=== PATIENT | female | born 1975 | race Caucasian/White ===

== ENCOUNTER → 2018-02-20 10:45 | Outpatient (CLI) | payer BC, SELFPAY ==
--- NOTE | 2018-02-20 10:49 | MR_ITS ---
MR lumbar spine wo con, MR 3-d myelogram/MRCP HISTORY: LBP with LT leg pain, numbness, tingling, and swelling. HX 2 back surgeries. Last one X 4 Years ago. Weakness in LT leg. Symptoms X 2months. No trauma ITS.REASON: SCIATICA ASSOCIATED WITH DISORDER ORDERING PHYSICIAN: Felicita Pratt PATIENT AGE: 43 years Comparison: MRI 06-05-12 TECHNIQUE: Standard multiplanar multiecho sequences are performed without contrast. 3-D MIP and myelographic images are also rendered and reviewed FINDINGS: There is normal alignment. The spinal cord ends at the L1 level. T12-L1, L1-L2, and L2-L3 show some mild endplate irregularity. No disc herniation or canal stenosis. There is some minimal facet hypertrophic changes as well as these levels. L3-L4: Unremarkable. L4-L5: There is a small concentric bulging disc with a posterior annular fissure and minimal left paracentral disc protrusion along with mild facet hypertrophic change slightly greater on the left. The minimal disc protrusion and left-sided facet hypertrophy does abut upon the left L5 nerve root. There is fkpr-sp-bttrabbm left-sided foraminal narrowing at this level as well. L5-S1: Degenerative disc disease. Prior left laminectomy. There is bulging disc with small endplate osteophytes and facet hypertrophic change. Minimal left paracentral disc protrusion noted versus a small area of epidural fibrosis. This does abut the anterior aspect of the left S1 nerve root. Post enhanced exam may aid to distinguish between the 2 entities if clinically warranted. Probably not significant changed from 06/05/2012. IMPRESSION: 1. Mild degenerative changes with endplate irregularity and mild facet hypertrophy T12-L3 2. There is a small concentric bulging disc at L4-L5 with a posterior annular fissure and minimal left paracentral disc protrusion along with mild facet hypertrophic change slightly greater on the left. The minimal disc protrusion and left-sided facet hypertrophy does abut upon the left L5 nerve root. There is sldt-gw-cgoycwuq left-sided foraminal narrowing at this level as well. 3. Degenerative disc disease L5-S1 status post prior left laminectomy with bulging disc with small endplate osteophytes and facet hypertrophic change. Minimal left paracentral disc protrusion noted versus a small area of epidural fibrosis. This does abut the anterior aspect of the left S1 nerve root. Post enhanced exam may aid to distinguish between the 2 entities if clinically warranted. Probably not significant changed from 06/05/2012.
--- NOTE | 2018-02-20 10:49 | MR_ITS ---
MR lumbar spine wo con, MR 3-d myelogram/MRCP HISTORY: LBP with LT leg pain, numbness, tingling, and swelling. HX 2 back surgeries. Last one X 4 Years ago. Weakness in LT leg. Symptoms X 2months. No trauma ITS.REASON: SCIATICA ASSOCIATED WITH DISORDER ORDERING PHYSICIAN: Felicita Pratt PATIENT AGE: 43 years Comparison: MRI 06-05-12 TECHNIQUE: Standard multiplanar multiecho sequences are performed without contrast. 3-D MIP and myelographic images are also rendered and reviewed FINDINGS: There is normal alignment. The spinal cord ends at the L1 level. T12-L1, L1-L2, and L2-L3 show some mild endplate irregularity. No disc herniation or canal stenosis. There is some minimal facet hypertrophic changes as well as these levels. L3-L4: Unremarkable. L4-L5: There is a small concentric bulging disc with a posterior annular fissure and minimal left paracentral disc protrusion along with mild facet hypertrophic change slightly greater on the left. The minimal disc protrusion and left-sided facet hypertrophy does abut upon the left L5 nerve root. There is dcsd-xr-lkangcbu left-sided foraminal narrowing at this level as well. L5-S1: Degenerative disc disease. Prior left laminectomy. There is bulging disc with small endplate osteophytes and facet hypertrophic change. Minimal left paracentral disc protrusion noted versus a small area of epidural fibrosis. This does abut the anterior aspect of the left S1 nerve root. Post enhanced exam may aid to distinguish between the 2 entities if clinically warranted. Probably not significant changed from 06/05/2012. IMPRESSION: 1. Mild degenerative changes with endplate irregularity and mild facet hypertrophy T12-L3 2. There is a small concentric bulging disc at L4-L5 with a posterior annular fissure and minimal left paracentral disc protrusion along with mild facet hypertrophic change slightly greater on the left. The minimal disc protrusion and left-sided facet hypertrophy does abut upon the left L5 nerve root. There is wrqo-se-pbosfllg left-sided foraminal narrowing at this level as well. 3. Degenerative disc disease L5-S1 status post prior left laminectomy with bulging disc with small endplate osteophytes and facet hypertrophic change. Minimal left paracentral disc protrusion noted versus a small area of epidural fibrosis. This does abut the anterior aspect of the left S1 nerve root. Post enhanced exam may aid to distinguish between the 2 entities if clinically warranted. Probably not significant changed from 06/05/2012.
== END ==
PROVIDERS: PCP Nurse Practitioner; Visit Provider Nurse Practitioner
DX: M54.30 Sciatica, unspecified side (principal)
CPT/HCPCS: 72148; 76376

== ENCOUNTER → 2018-07-22 16:14 | Outpatient (CLI) | payer BC, SELFPAY ==
[2018-07-22 16:48] LABS: Basophils % 0.2 % (0.1-2.0); Eosinophils # 0.2 K/mm3 (0.0-0.4); Eosinophils % 1.7 % (0.1-12.0); Hematocrit 44.2 % (37.0-47.0); Hemoglobin 14.9 g/dL (12.2-16.2); Lymphocytes # 1.5 K/mm3 (0.7-4.5); Lymphocytes % 16.6 % (10-50); Mean Corpuscular HGB Conc 33.6 g/dL (31.8-35.4); Mean Corpuscular Hemoglobin 30.7 pg (27.0-31.2); Mean Corpuscular Volume 91.2 fl (81-99); Monocytes # 0.4 K/mm3 (0.1-1.0); Monocytes % 4.5 % (1.7-9.3); Neutrophils # 7.1 K/mm3 (1.8-7.8); Platelet Count 262 K/mm3 (142-424); Red Blood Count 4.85 M/mm3 (4.20-5.40); Red Cell Distribution Width 13.2 % (11.5-17.5); White Blood Count 9.2 K/mm3 (4.8-10.8)
[2018-07-22 18:20] LABS: Thyroid Stimulating Hormone 2.35 uIU/ml (0.358-3.740)
[2018-07-22 20:18] LABS: Amphetamine/Metha Screen,Urine Negative ng/mL (<1000); Barbiturates Screen,Urine Negative ng/mL (<200); Benzodiazepines Screen,Urine Negative ng/mL (<200); Cannabinoid Screen,Urine Negative ng/mL (<50); Cocaine Screen,Urine Negative ng/mL (<300); Methadone Screen,Urine Negative ng/mL (<300); Opiate Screen,Urine Negative ng/mL (<300); Phencyclidine Screen,Urine Negative ng/mL (<25)
[2018-07-24 08:27] LABS: HIV Screen 4th Generation wRfx Non Reactive (Non Reactive)
[2018-07-24 15:05] LABS: Rubella Antibodies, IgG 1.13 index (Immune >0.99)
[2018-07-24 15:06] LABS: Hepatitis B Surface Antigen Negative (Negative); Rapid Plasma Reagin Ab Titer Non Reactive (NonRea<1:1)
== END ==
PROVIDERS: Visit Provider Obstetrics & Gynecology
DX: Z34.90 Encounter for supervision of normal pregnancy, unspecified, unspecified trimester (principal)
CPT/HCPCS: 36415; 80305; 84443; 85025; 86592; 86703; 86762; 86850; 87340; G0432

== ENCOUNTER 2018-07-24 16:30 | Outpatient (RCR) | payer BC, SELFPAY ==
--- NOTE | 2018-07-16 10:16 | [facility].PTOPEV ---
PT Outpatient Evaluation Rehab PT Outpatient Evaluation Start: 07/16/18 08:36 Freq: Status: Active Protocol: Document 07/16/18 08:36 ROLA (Rec: 07/16/18 09:17 PHORNE [id number]) Electronically Signed By Leonel Damian, PT 07/16/18 08:36 Outpatient Therapy Subjective History Subjective History Pt is a 43 yowf with complaints of right lateral epicondylitis. Pt reports pain began 2 months ago for seemingly no reason. Pt felt pain when squeezing objects. Pt's pain is 4/10 at the moment, 2/10 at best, and 6/10 at worst. Pain is a ache, but sharp at times, at the lateral condyle that radiates to the extensor muscle bellies . Pt reports pain with squeezing and elbow flexion. Pt reports relief of pain with a compression sleeve, heat, ice, and rest. 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 Pt denies comorbidities. Pt's past surgeries include back surgery x2. Chief Complaint Pain Symptom Type Ache Sharp Symptoms Relieved By Rest/Positioning Heat Ice Symptoms Aggravated By Physical Activity Prior Functional Limitations None Current Functional Limitations None Symptom Description Constant but Variable Level of pain today (0-10) 4 Pain scale - at its best (0-10) 2 Pain scale - at its worst (0-10) 6 Shoulder/Elbow Eval Shoulder Objective Measurements Shoulder ROM Bilateral full ROM shoulder exam standard bilateral Shoulder MMT Shoulder Strength Reason Not Measured WFL Elbow Objective Measurements Palpation Tenderness Elbow Palpation Overall Comment Tenderness at right lateral epicondyle and into extensor muscle bellies. Elbow Palpation Finding Tenderness tenderness over the lateral epicondyle right elbow exam standard Flexibility Deficits Bicep Muscle Length (R) WFL (L) WFL Tricep Muscle Length (R) WFL (L) WFL Elbow ROM Bilateral full ROM elbow exam standard bilateral Elbow MMT Left Elbow Flexion Strength Grade 5 Normal Elbow Extension Strength Grade
== END 2018-07-24 16:35 | disposition home or self-care (01) ==
LOC: PT 16:30
PROVIDERS: Referring Provider Nurse Practitioner; Visit Provider Nurse Practitioner
DX: M77.11 Lateral epicondylitis, right elbow (principal)
CPT/HCPCS: 97010; 97014; 97033; 97035; 97110; 97140; 97163; G0283

== ENCOUNTER → 2018-09-01 16:02 | Outpatient (CLI) | payer BC, SELFPAY | PROVIDERS: Visit Provider Obstetrics & Gynecology | DX: Z34.90 Encounter for supervision of normal pregnancy, unspecified, unspecified trimester (principal) | CPT/HCPCS: 36415; 82106 ==

== ENCOUNTER → 2018-11-10 09:24 | Outpatient (CLI) | payer BC, SELFPAY ==
[2018-11-10 11:45] LABS: Glucose 1 Hour 139 mg/dL (74-106)
== END ==
PROVIDERS: Visit Provider Obstetrics & Gynecology
DX: Z34.90 Encounter for supervision of normal pregnancy, unspecified, unspecified trimester (principal)
CPT/HCPCS: 36415; 82951

== ENCOUNTER → 2018-11-11 08:42 | Outpatient (CLI) | payer BC, SELFPAY ==
[2018-11-11 09:28] LABS: Glucose,Fasting 84 mg/dL (60-105)
[2018-11-11 11:21] LABS: Glucose 1 Hour 176 mg/dL (74-106)
[2018-11-11 11:56] LABS: Glucose 2 Hour 130 mg/dL (74-106)
[2018-11-11 12:52] LABS: Glucose 3 Hour 139 mg/dL (74-106)
== END ==
PROVIDERS: Visit Provider Obstetrics & Gynecology
DX: O99.810 Abnormal glucose complicating pregnancy (principal)
CPT/HCPCS: 36415; 82951

== ENCOUNTER → 2019-01-06 09:16 | Outpatient (CLI) | payer BC, SELFPAY ==
--- NOTE | 2019-01-06 09:21 | US_ITS ---
PROCEDURE: US GALLBLADDER CLINICAL INDICATION: GALLSTONES DURING Right upper quadrant pain COMPARISON: No exams were available for comparison FINDINGS: Pancreas: Unremarkable/Not well seen Liver: Unremarkable. There is appropriate direction of blood flow within a non dilated portal vein. Right kidney: Unremarkable appearing. No hydronephrosis. Gallbladder: No stones are evident. There is no gallbladder wall thickening. Common duct is normal in diameter. IMPRESSION: Negative gallbladder ultrasound. No stones evident. Dictated by: Shayne Sheriff MD 01/06/2019 17:38 Electronically signed by Shayne Sheriff MD in [facility] 01/06/2019 17:38
== END ==
PROVIDERS: PCP Nurse Practitioner; Visit Provider Obstetrics & Gynecology
DX: Z34.90 Encounter for supervision of normal pregnancy, unspecified, unspecified trimester (principal); K80.20 Calculus of gallbladder without cholecystitis without obstruction
CPT/HCPCS: 76705

== ENCOUNTER → 2019-01-15 15:38 | Outpatient (CLI) | payer BC, SELFPAY | PROVIDERS: Visit Provider Obstetrics & Gynecology | DX: Z34.90 Encounter for supervision of normal pregnancy, unspecified, unspecified trimester (principal) | CPT/HCPCS: 86403 ==

== ENCOUNTER 2019-02-28 23:00 | Inpatient (IN) ==
[2019-02-28 23:28] LABS: Microscopic, Urine URINE MICROSCOPIC (MICROSCOPIC)
[2019-02-28 23:37] LABS: Appearance,Urine CLEAR (Clear); Bilirubin,Urine Negative (Negative); Blood, Urine 2+ (Negative); Color,Urine YELLOW (Yellow); Glucose,Urine (UA) Negative (Negative); Ketones,Urine Negative (Negative); Leukocyte Esterase,Urine Negative (Negative); Protein,Urine Negative (Negative); Urobilinogen,Urine 0.2 EU/dl (0.2)
[2019-02-28 23:39] LABS: Amphetamine/Metha Screen,Urine Negative ng/mL (<1000); Barbiturates Screen,Urine Negative ng/mL (<200); Benzodiazepines Screen,Urine Negative ng/mL (<200); Cannabinoid Screen,Urine Negative ng/mL (<50); Cocaine Screen,Urine Negative ng/mL (<300); Methadone Screen,Urine Negative ng/mL (<300); Opiate Screen,Urine Negative ng/mL (<300); Phencyclidine Screen,Urine Negative ng/mL (<25)
[2019-03-01 00:10] LABS: Basophils % 0.1 % (0.1-2.0); Eosinophils # 0.1 K/mm3 (0.0-0.4); Eosinophils % 0.8 % (0.1-12.0); Hematocrit 43.6 % (37.0-47.0); Hemoglobin 14.6 g/dL (12.2-16.2); Lymphocytes # 1.8 K/mm3 (0.7-4.5); Lymphocytes % 16.7 % (10-50); Mean Corpuscular HGB Conc 33.5 g/dL (31.8-35.4); Mean Corpuscular Volume 93.3 fl (81-99); Mean Platelet Volume 11.6 fl (7.4-10.4); Monocytes # 0.6 K/mm3 (0.1-1.0); Monocytes % 5.4 % (1.7-9.3); Neutrophils # 8.2 K/mm3 (1.8-7.8); Neutrophils % 76.9 % (37.0-80.0); Platelet Count 152 K/mm3 (142-424); Red Blood Count 4.67 M/mm3 (4.20-5.40); Red Cell Distribution Width 14.2 % (11.5-17.5); White Blood Count 10.7 K/mm3 (4.8-10.8)
--- NOTE | 2019-03-01 07:36 | History & Physical Report ---
OB - H&P: HPI Antepartum - History of Present Illness Chief complaint: Ruptured membranes, contractions History of present illness: She is a 44-year-old 5 para 1 who was 40 and 3 weeks gestational age. She ruptured her membranes last evening and came in in early labor. She was found to be 3 cm dilated. She is admitted for labor and delivery. - History of Present Criteria for establishing EDC:: LMP confirmed by 1st trimester US Ultrasounds: normal 1st trimester US, normal mid trimester US Medical complications: other Narrative: Advanced maternal age - Labs Blood type: A (+) positive Rubella: immune RPR/VDRL: nonreactive GBS status: negative [facility] History I have reviewed the patient's past medical history: Yes *Have you ever received a pneumonia vaccine?: No *Have you received a flu vaccine this season?: Yes (IN JAN) Other Surgeries: No: Amputation: No Fractures: No - *Social History Smoking Status: Never smoker Alcohol Intake: never Alcohol Intake Frequency:: other Substance Use Type: denies use *Occupational Status:: employed Housing: house Household Members: significant other, children *Travel in the last 8 weeks: None Family Hx:: No significant family history Para: 1 Review of Systems - Review of Systems Review of systems:: pertinent systems reviewed and negative unless documented below Meds Home Medications Medication Instructions Recorded Confirmed Type 1 tab PO DAILY 08/14/18 02/28/19 History vitamin,calcium,eopqfwtb-hkwe-sbpkg acid tablet Allergies Allergy/AdvReac Type Severity Reaction Status Date / Time No Known Allergies Allergy Unverified 02/20/19 09:15 OB - H&P: Exam - Physical Exam Vital signs: Temp Pulse Resp BP Pulse Ox 97.8 F 93 H 17 115/72 97 03/01/19 04:00 03/01/19 04:00 03/01/19 04:00 03/01/19 04:00 03/01/19 04:00 - Constitutional no acute distress - Routine HEENT Exam Head: Present: normocephalic Eye: Present: EOMI, PERRL ENT: Present: mucous membranes moist - Routine Neck Exam Present: supple, full ROM - Routine Respiratory Exam Absent: accessory muscle use (good air entry bilaterally), respiratory distress, wheezes, crackles - Routine Cardiovascular Exam Present: RRR. Absent: murmur - Routine Abdominal Exam Present: soft, normoactive bowel sounds. Absent: tenderness, distended, guarding - Routine Rectal Exam Patient deferred: visual exam, digital exam - Routine Exam Patient deferred: external exam, groin exam, perineal exam - Routine Extremities Exam Present: full ROM. Absent: cyanosis, edema - Routine Skin Exam Present: intact. Absent: cyanosis - Routine Neurological Exam Present: alert, oriented X3 - Routine Psychiatric Exam Present: normal affect OB - Results - Labs Labs: Short CBC 02/28/19 Range/Units 23:59 WBC 10.7 (4.8-10.8) K/mm3 Hgb 14.6 (12.2-16.2) g/dL Hct 43.6 (37.0-47.0) % Plt Count 152 (142-424) K/mm3 Urine 02/28/19 Range/Units 23:05 Urine Color Yellow (Yellow) Urine Appearance Clear (Clear) Urine pH 7.0 (5.0-8.5) Ur Specific [place] 1.020 (1.005-1.030) Urine Protein Negative (Negative) Urine Glucose (UA) Negative (Negative) OB - A/P Antepartum (1) Normal delivery at term Current visit: Yes Status: Acute (2) Advanced maternal age in multigravida Current visit: Yes Status: Acute - Additional Plan Plan: other Additional Information:: She has ruptured membranes and is now fully dilated. We are having her push. We will plan a vaginal delivery. She is had a previous 8+ pound baby.
--- NOTE | 2019-03-01 07:37 | Progress Note ---
Labor Note - Subjective: Date: 03/01/19 Time: 07:36 regular contraction - Objective: NST:: Reactive Contractions:: every 2-3 minutes Cervical Dilation:: 9-10 Effacement:: 100% Station: +1 Membranes: spontaneously ruptured - Fetus: Monitoring?: Yes monitoring type:: External - Assessment: Labor progressing?: Yes Cephalopelvic disproportion?: No Patient Problems: All Active Problems Advanced maternal age (AMA), 40 years or greater (Acute) Normal delivery at term (Acute) Advanced maternal age in multigravida (Acute) (Acute) - Plan: Anesthesia for epidural?: Yes Continue to labor down?: Yes Plan for ?: No Continue to monitor?: Yes Start pushing?: Yes Continue pushing?: Yes Comment:: She is fully dilated is station 0 and we will go ahead and start pushing
--- NOTE | 2019-03-01 10:42 | Procedure Note ---
- Delivery Note Delivery Date:: 03/01/19 Delivery Time:: 08:30 Anesthesia Type: Epidural Was labor medically induced?: No Induction method: none Gestational age (weeks): 40 delivered prior to 39 weeks?: No Justification for early elective delivery:: Active Labor Gender: Female at 1 minute: 9 at 5 minutes: 10 LAC or MLE?: LAC Delivery Procedure:: She is a 44-year-old 5 para 1 aborta 3 who was 40 and 3 weeks ge stational age. She came in in active labor with ruptured membranes on the evening of February 28, 2019. She progressed on her own throughout the night to full dilation under labor epidural and progressed to full dilation. She began pushing. She was having prolonged decelerations so we elected to expedite the delivery with forceps. Her bladder was drained and forceps were applied at station +3. I used Flores forceps with pads. Using 2 gentle pulls I was able to easily deliver the head in the direct OP position. On deliver the head there was a loose nuchal cord and this was reduced followed by the rest of infant's body atraumatically. The baby was vigorous and cried spontaneously. We allowed the cord to continue to pulsate for approximately 1 minute. The cord was then doubly clamped and cut and the infant was handed off to Dr. Price who assigned Apgars of 9 at 1 minute and 9 at 5 minutes. We then obtained cord blood as well as cord pH. She received IV oxytocin and using gentle traction on the cord and countertraction on the fundus I was able to easily deliver the placenta intact. He had a normal three-vessel cord. She had 1/4 degree perineal laceration. She was in stirrups in the lithotomy position and I closed the rectal mucosa using interrupted 2-0 Vicryl suture. I then imbricated this stitch using interrupted 2-0 Vicryl suture. The sphincter muscle was then grasped with Allis clamps and closed using 2-0 PDS suture. 3 separate sutures were used and placed through the fascia of the sphincter. There were placed posteriorly anteriorly and superiorly. They were tagged individually and then tied in the order in which they were placed. I then closed the vaginal mucosa using running 3-0 Vicryl Rapide suture. A crown stitch was performed at the top of the perineum reapproximating the vaginal orifice. The deep tissues of the perineum were then closed using interrupted 2-0 Vicryl suture. The skin was closed with subcuticular 2-0 Vicryl suture. Rectal examination revealed intact sphincter. She has a positive blood, she is rubella immune and was group A streptococcus negative. She plans to bottlefeed. Her activity director is Dr. Dahl. Estimated blood loss was approximately 500 cc. She has received 1 dose of Ancef 2 g. Laceration:: vaginal Placental Delivery Description: Spontaneous
--- NOTE | 2019-03-02 06:13 | Progress Note ---
Internal Medicine - PN: Subj *Date: 03/02/19 *Time: 06:12 (This is day #1. The patient is afebrile. Vital signs stable. Lochia normal. Uterine fundus involuting well. She is breast-feeding well. Her perineum (fourth degree laceration) is healing well. Impression: Stable.) Exam Vital signs and Labs for Last 24 Hours: Temp Pulse Resp BP Pulse Ox 98.0 F 93 H 18 112/59 L 96 03/02/19 04:02 03/02/19 04:02 03/02/19 04:02 03/02/19 04:02 03/01/19 21:07 Laboratory Results - last 24 hr 03/01/19 08:47: Cord ABG pH 7.27 L I & O for Last 24 hours: Intake & Output 02/27/19 02/28/19 03/01/19 03/02/19 11:59 11:59 11:59 11:59 Weight 179 lb Assessment and Plan (1) Normal delivery at term Current visit: Yes Status: Acute Category: Medical Code(s): O80 - Encounter for full-term uncomplicated delivery (2) Advanced maternal age in multigravida Current visit: Yes Status: Acute Category: Medical Code(s): O09.529 - Supervision of elderly multigravida, unspecified trimester
[2019-03-02 06:38] LABS: Hematocrit 36.4 % (37.0-47.0); Hemoglobin 11.9 g/dL (12.2-16.2)
--- NOTE | 2019-03-02 14:47 | Progress Note ---
Internal Medicine - PN: Subj *Date: 03/02/19 (The patient is doing well. Perineum is healing well.) *Time: 14:47 Exam Vital signs and Labs for Last 24 Hours: Temp Pulse Resp BP Pulse Ox 97.5 F L 80 18 112/67 98 03/02/19 12:07 03/02/19 12:07 03/02/19 12:07 03/02/19 12:07 03/02/19 12:07 Laboratory Results - last 24 hr 03/02/19 06:24: Hgb 11.9 L, Hct 36.4 L I & O for Last 24 hours: Intake & Output 02/28/19 03/01/19 03/02/19 03/03/19 11:59 11:59 11:59 11:59 Weight 179 lb Assessment and Plan (1) Normal delivery at term Current visit: Yes Status: Acute Category: Medical Code(s): O80 - Encounter for full-term uncomplicated delivery (2) Advanced maternal age in multigravida Current visit: Yes Status: Acute Category: Medical Code(s): O09.529 - Supervision of elderly multigravida, unspecified trimester
--- NOTE | 2019-03-03 06:25 | Progress Note ---
Internal Medicine - PN: Subj *Date: 03/03/19 *Time: 06:25 (This is day #2. The patient is afebrile. Vital signs stable. Lochia normal. Uterine fundus is involuting well. Perineum is healing well. She will be discharged today.) Exam Vital signs and Labs for Last 24 Hours: Temp Pulse Resp BP Pulse Ox 98.1 F 82 17 101/52 L 98 03/03/19 05:09 03/03/19 05:09 03/03/19 05:09 03/03/19 05:09 03/03/19 05:09 Laboratory Results - last 24 hr 03/02/19 06:24: Hgb 11.9 L, Hct 36.4 L I & O for Last 24 hours: Intake & Output 02/28/19 03/01/19 03/02/19 03/03/19 11:59 11:59 11:59 11:59 Weight 179 lb Assessment and Plan (1) Normal delivery at term Current visit: Yes Status: Acute Category: Medical Code(s): O80 - Encounter for full-term uncomplicated delivery (2) Advanced maternal age in multigravida Current visit: Yes Status: Acute Category: Medical Code(s): O09.529 - S upervision of elderly multigravida, unspecified trimester
--- NOTE | 2019-03-03 07:25 | Discharge Summary ---
General - General Admission date:: 02/28/19 Discharge date: 03/03/19 (This 44-year-old 5, now para 2, AB 3 white female was admitted at 40-5/7 weeks in active labor. She labored under labor epidural, and went steadily to completion. There were some worrisome decelerations during the second stage of labor, and the patient was delivered by outlet forceps on 03/01/2019. The baby was an 9/10, 7 pound 8 ounce, 19.75 inch female , who is breast-feeding and is done well. The patient sustained 1/4 degree perineal laceration, which was closed in the usual fashion, in layers. , the patient is done well. She is eating and ambulating, and this had a bowel movement. Her perineum is healing well. Her lochia is normal. Her uterine fundus has involuted well. Her hemoglobin is 11.6 g, at which she is clinically stable. She is discharged home on the second day on iron and vitamins, and on Tylenol and Motrin, as needed for pain. She is given appropriate instructions as to diet, exercise, and perineal care, and she is to return the office in 2 weeks for follow-up. Her blood type is A+. Her rubella titer is immune.) Hospital Course Rhogam Administration: Not Indicated Objective Vital signs: Temp Pulse Resp BP Pulse Ox 98.1 F 82 17 101/52 L 98 03/03/19 05:09 03/03/19 05:09 03/03/19 05:09 03/03/19 05:09 03/03/19 05:09 DS: Diagnosis - Discharge Diagnosis (1) Normal delivery at term Status: Acute (2) Advanced maternal age in multigravida Status: Acute Discharge Plan - Patient Discharge Instructions ACTIVITY: Ambulate as tolerated DIET: advance to your usual diet Additional Instructions: No heavy lifting, no driving while taking prescription narcotics, nothing in the vagina for 6 weeks. Patient Instructions: Depression, Hemorrhage, [facility] Post Discharge Instructions - Follow up Plan Follow up with: Elijah Hong MD [Staff Physician] - Disposition: Home, Self-Residential Medications: Home Medications Medication Instructions Recorded Confirmed Type 1 tab PO DAILY 08/14/18 02/28/19 History vitamin,calcium,sonvnoso-krtg-qwasj acid tablet Prescriptions/Medication Reconciliation: Continued vitamin,calcium,lbagsvxs-dbna-qhfge acid tablet 1 tab PO DAILY - Problem Reconciliation Problems Reviewed?: Yes
[2019-03-03 09:02] VITALS: BP 106/67
== END 2019-03-03 11:45 | disposition home or self-care (01) | DRG 768 ==
LOC: OBOUT 23:00 → OB 23:01
PROVIDERS: ADMIT Nurse Practitioner Obstetrics & Gynecology; ATTEND Nurse Practitioner Obstetrics & Gynecology

== ENCOUNTER → 2019-03-27 09:20 | Outpatient (CLI) | payer BC, SELFPAY ==
[2019-03-27 09:24] LABS: Microscopic, Urine URINE MICROSCOPIC (MICROSCOPIC)
[2019-03-27 09:59] LABS: Basophils % 0.3 % (0.1-2.0); Eosinophils # 0.1 K/mm3 (0.0-0.4); Eosinophils % 2.1 % (0.1-12.0); Hematocrit 46.5 % (37.0-47.0); Hemoglobin 14.8 g/dL (12.2-16.2); Lymphocytes # 1.3 K/mm3 (0.7-4.5); Lymphocytes % 19.4 % (10-50); Mean Corpuscular HGB Conc 31.9 g/dL (31.8-35.4); Mean Corpuscular Hemoglobin 30.4 pg (27.0-31.2); Mean Corpuscular Volume 95.5 fl (81-99); Monocytes # 0.4 K/mm3 (0.1-1.0); Neutrophils # 4.7 K/mm3 (1.8-7.8); Neutrophils % 72.2 % (37.0-80.0); Platelet Count 237 K/mm3 (142-424); Red Blood Count 4.87 M/mm3 (4.20-5.40); Red Cell Distribution Width 13.1 % (11.5-17.5); White Blood Count 6.6 K/mm3 (4.8-10.8)
[2019-03-27 10:04] LABS: Appearance,Urine CLEAR (Clear); Bilirubin,Urine Negative (Negative); Blood, Urine 3+ (Negative); Color,Urine YELLOW (Yellow); Glucose,Urine (UA) Negative (Negative); Ketones,Urine Negative (Negative); Leukocyte Esterase,Urine Negative (Negative); Nitrate,Urine Negative (Negative); Protein,Urine Negative (Negative); Specific Gravity, Urine 1.025 (1.005-1.030); Urobilinogen,Urine 0.2 EU/dl (0.2)
[2019-03-27 10:53] LABS: HCG Qualitative, Serum Negative (Negative)
[2019-03-27 15:39] LABS: Alanine Aminotransferase 65 U/L (12-78); Albumin Level 3.7 gm/dL (3.4-5.0); Alkaline Phosphatase 90 U/L (46-116); Anion Gap 19.3 mEq/L (5-15); Aspartate Amino Transferase 39 U/L (15-37); Bilirubin,Total 0.3 mg/dL (0.2-1.0); Blood Urea Nitrogen 14 mg/dL (7-18); Calcium 8.7 mg/dL (8.5-10.1); Carbon Dioxide 22 mmol/L (21.0-32.0); Chloride 104 mmol/L (98-107); Creatinine,Serum 0.66 mg/dL (0.55-1.02); Estimated Glomerular Filt Rate 98 ml/min (>60); GFR (African American) 118 ML/MIN (>60); Globulin 3.8 gm/dl (1.3-3.2); Glucose 84 mg/dL (74-106); Potassium 4.3 mmoL/L (3.5-5.1); Sodium 141 mmol/L (136-145); Total Protein,Serum 7.5 gm/dL (6.4-8.2)
== END ==
PROVIDERS: Visit Provider Obstetrics & Gynecology
DX: Z01.818 Encounter for other preprocedural examination (principal); Z30.2 Encounter for sterilization
CPT/HCPCS: 36415; 80053; 81001; 84703; 85025

== ENCOUNTER → 2020-11-24 16:09 | Outpatient (CLI) | payer OTHER, SELFPAY ==
--- NOTE | 2020-11-24 16:09 | MM_ITS ---
PROCEDURE INFORMATION: Exam: MG Screening 3D Mammography Exam date and time: 11/24/2020 4:09 PM Age: 45 years old Clinical indication: Encounter for screening mammogram for malignant neoplasm of breast TECHNIQUE: Imaging protocol: Screening tomosynthesis and 2D mammography including computer-aided detection (CAD) when performed. COMPARISON: No relevant prior studies available. FINDINGS: MAMMOGRAPHY: Breast composition: The breast tissue is composed of scattered areas of fibroglandular density. Mass: Questionable 1.7 cm discrete mass in the posterior third of the left upper outer quadrant versus an island of dense normal fibroglandular structures Architectural distortion: None. Calcifications: No suspicious calcifications. Asymmetric density: None. Skin thickening: None. Axillary adenopathy: None. IMPRESSION: Patient to be recalled for left breast ultrasound for further evaluation of a questionable left breast mass. ASSESSMENT: BI-RADS Category 0: Incomplete- Need Additional Imaging Evaluation and/or Prior Mammograms for Comparison
== END ==
PROVIDERS: PCP Family Medicine; Visit Provider Nurse Practitioner Obstetrics & Gynecology
DX: Z12.31 Encounter for screening mammogram for malignant neoplasm of breast (principal)
CPT/HCPCS: 77063; 77067

== ENCOUNTER → 2020-12-12 14:29 | Outpatient (CLI) | payer OTHER, SELFPAY ==
--- NOTE | 2020-12-12 | CA_ITS ---
APPROVED REPORT Exam: Exercise Treadmill Technologist: Hannah Terry, Ht: 5 ft 3 in Wt: 162 lbs BSA: 1.77 m2 HR: 91 bpm BP: 140/79 mmHg Stress Test Details Test: Reginald HR Resting HR: 107 bpm Max Heart Rate (APMHR): 176.710807 bpm Max HR Achieved: 163 bpm Target HR (85% APMHR): 149.469688 bpm % of APMHR: 92.61 Recovery HR: 116 bpm BP Resting BP: 138/84 mmHg Max BP: 178/81 mmHg Recovery BP: 178.0/81.0 mmHg ECG Resting ECG: NSR Clinical Reason for Termination: Dyspnea Leg Pain Exercise duration: 09:00 min Highest Stage Achieved: Exercise capacity: 10.1 METs Stress ECG Conclusion Symptoms: No CP Arrhythmias/Ectopy: One PVC ST-T Changes: <1.5mm ST Segment Depression that resolved quickly in recovery. Conclusion: Negative stress test, No imaging. Test Summary REST . . . . . . . Sitting REST . . . . . . . Standing REST 05:33 0.0 1.2 107 . 138/ 84 . . Stage 1 01:00 10.0 1.7 117 . . . . Stage 1 02:00 10.0 1.7 119 . . . . Stage 1 03:00 10.0 1.7 127 . 142/ 82 . . Stage 2 01:00 12.0 2.5 126 . . . . Stage 2 02:00 12.0 2.5 133 . . . . Stage 2 03:00 12.0 2.5 134 . 154/ 82 . . Stage 3 01:00 14.0 3.4 146 . . . . Stage 3 02:00 14.0 3.4 155 . . . . Stage 3 03:00 14.0 3.4 161 . . . Stop exercise at 09:00 RECOVERY 01:00 0.0 0.0 143 . . . . RECOVERY 02:00 0.0 0.0 126 . . . . RECOVERY 03:00 0.0 0.0 119 . . . . RECOVERY 04:00 0.0 0.0 116 . 178/ 81 . . RECOVERY 05:00 0.0 0.0 115 . 178/ 81 . . RECOVERY 05:40 0.0 0.0 115 . 178/ 81 . . Electronically signed by : Luis Miguel Mishra MD 12/12/2020 18:10:05
== END ==
PROVIDERS: PCP Family Medicine; Visit Provider Family Medicine
DX: I20.8 Other forms of angina pectoris (principal); Z82.49 Family history of ischemic heart disease and other diseases of the circulatory system
CPT/HCPCS: 93017

== ENCOUNTER → 2020-12-19 13:09 | Outpatient (CLI) | payer OTHER, SELFPAY ==
--- NOTE | 2020-12-19 | MM_ITS ---
PROCEDURE: MM DIG MAMM DX UNILAT LT CAD Digital Breast Tomosynthesis Included Left breast ultrasound complete CLINICAL INDICATION: Abnormal screening study COMPARISON: MG MM DIG SCREENING MAMM BI W/CAD from 11/24/2020 US US BREAST LT COMPLETE from 12/19/2020 TECHNIQUE: Standard CC and MLO images and 3D Tomosynthesis was obtained. R2 CAD reviewed. FINDINGS: There are scattered areas of fibroglandular density Spot views demonstrate persistent asymmetric density in the upper outer left breast. This area measures approximately 1.7 cm. This partially compresses out on focal spot compression views. Margins are not well defined. No calcifications or spiculations. Left breast ultrasound: No discrete cystic or solid mass evident. Small nodes are present in the left axilla. Specifically, there is no mass in the upper outer quadrant. IMPRESSION: Asymmetric density in the upper outer aspect of the left breast shows no sonographic correlate and may be related to an island of asymmetric fibroglandular tissue. This area is less prominent on spot compression views and the rolled lateral view. Probably benign. Recommend six-month follow-up BI-RAD Category: 3 Probably Benign Finding Short Term Follow-Up FOLLOW-UP: 6M 6 Month Follow-up Also recommend dedicated breast exam. Any palpable abnormality should be managed on clinical basis. (A letter has been sent to the patient regarding results of the study.) Dictated by: Shayne Sheriff MD 12/22/2020 18:25 Shayne Sheriff MD in [place] 12/22/2020 18:25
== END ==
PROVIDERS: PCP Family Medicine; Visit Provider Nurse Practitioner Obstetrics & Gynecology
DX: R92.8 Other abnormal and inconclusive findings on diagnostic imaging of breast (principal)
CPT/HCPCS: 76641; 77061; 77065; G0279

== ENCOUNTER → 2021-02-08 10:36 | Outpatient (CLI) | payer OTHER, SELFPAY ==
--- NOTE | 2021-02-08 10:44 | XR_ITS ---
PROCEDURE: XR LUMBAR SPINE MIN 4V CLINICAL INDICATION: LOW BACK PAIN,LT LEG NUMBNESS COMPARISON: No exams were available for comparison FINDINGS: Minimal lumbar curvature convex right. No fracture or dislocation. Degenerative disc disease L5-S1 Unremarkable SI joints. IMPRESSION: Degenerative disc disease L5-S1 Dictated by: Shayne Sheriff MD 02/08/2021 17:36 Shayne Sheriff MD in [place] 02/08/2021 17:36
== END ==
PROVIDERS: PCP Family Medicine; Visit Provider Nurse Practitioner Family
DX: M54.42 Lumbago with sciatica, left side (principal); R20.0 Anesthesia of skin
CPT/HCPCS: 72110

== ENCOUNTER → 2021-02-27 14:29 | Outpatient (CLI) | payer OTHER, SELFPAY ==
--- NOTE | 2021-02-27 14:32 | MR_ITS ---
PROCEDURE: MR LUMBAR SPINE WO CON CLINICAL INDICATION: LBP WITH LEFT LEG NUMBNESS COMPARISON: MR LSC MRI-L-SPINE WITH/WITHOUT from 06/05/2012 MR SPLUMBWO MR lumbar spine wo con from 02/20/2018 CR XR LUMBAR SPINE MIN 4V from 02/08/2021 TECHNIQUE: Standard multiplanar multiecho sequences are performed without contrast. 3-D MIP and myelographic images are also rendered and reviewed FINDINGS: There is normal alignment. The spinal cord ends the L1 level. L1-L2: Mild degenerative disc disease. L2-L3: Mild degenerative disc disease. L3-L4: Mild degenerative disc disease. L4-5: Mild bulging disc slightly eccentric toward the left. There is an annular fissure present centrally and on the left. There is mild left lateral recess narrowing and mild left-sided foraminal narrowing. Mild facet and ligamentum hypertrophic changes. L5-S1: Degenerative disc disease with mild bulging disc along with facet and ligamentum hypertrophic changes with moderate bilateral foraminal narrowing left slightly greater than right. IMPRESSION: Multilevel lumbar spondylosis. Please see above for detailed description at each level. No extruded herniated disc or bony canal stenosis. Dictated by: Shayne Sheriff MD 02/28/2021 10:08 Shayne Sheriff MD in [place] 02/28/2021 10:08
== END ==
PROVIDERS: PCP Family Medicine; Visit Provider Nurse Practitioner Family
DX: M54.42 Lumbago with sciatica, left side (principal); R20.0 Anesthesia of skin; Z98.890 Other specified postprocedural states
CPT/HCPCS: 72148; 76376

== ENCOUNTER → 2021-06-12 09:50 | Outpatient (POV) | payer OTHER, SELFPAY ==
[2021-06-12 10:19] VITALS: BP 141/85; PULSE 93; RESP 18; O2SAT 98; BMI 28.7
--- NOTE | 2021-06-12 14:19 | HMH.PMCON ---
Assessment and Plan (1) Degenerative joint disease (DJD) of lumbar spine Status: Acute Category: Medical Code(s): M47.816 - Spondylosis without myelopathy or radiculopathy, lumbar region (2) Lumbar radiculopathy Status: Acute Category: Medical Code(s): M54.16 - Radiculopathy, lumbar region I discussed with the patient that she will benefit from a lumbar epidural steroid injection under fluoroscopy at L5-S1 #1. We will schedule her for the above injection to be performed in our clinic in 2 to 3 weeks. Raudel #[id number] was reviewed and appropriate. ORT was performed this patient and the patient was deemed low risk. (3) Post laminectomy syndrome Status: Acute Category: Medical Code(s): M96.1 - Postlaminectomy syndrome, not elsewhere classified HPI - Data of Consult Patient: new to practice Consult date: 06/12/21 Requesting Physician: Olivia Nicole MD - Consult Narrative Reason for consult: Chronic low back pain History of present illness: Ms. Flores is a 46 year old white female presents today for initial consultation on her chronic low back pain. She has a history of lumbar spine including lumbar discectomy surgery back in 2015 Dr. Juarez. She states that she experienced significant pain relief after undergoing the surgery but she states that the pain symptoms have recently returned. She has recently been evaluated by the neurosurgery department at [facility] who recommended against any acute surgical intervention at this time. She describes the pain in her low back and radiates down the left side. She states that the pain radiates down the lateral aspect of her left leg down to the level of her lower leg. She scribes the pain as dull aching pain at baseline with sharp shooting exacerbations with associated numbness and tingling. She has tried conservative treatment including oral medications patient program for greater than 6 weeks. Her pain today as a 6 out of 10. MRI of the lumbar spine was performed which demonstrated multilevel degenerative disc disease including mild bulging disc towards the left resulting in left-sided foraminal narrowing and mild facet and ligamentum hypertrophic changes. At L5-S1 there is degenerative disc disease with mild bulging disc along with facet and ligamentum hypertrophy resulting in moderate bilateral foraminal narrowing on the left greater than the right. CC: Olivia Nicole MD [facility] History I have reviewed the patient's past medical history: Yes Medical History: Denies:: Cancer, Diabetes Mellitus Type 1, Diabetes Mellitus Type 2, Internal Pacemaker, MRSA, Seizures *Have you ever received a pneumonia vaccine?: No *Have you received a flu vaccine this season?: No Other Medical History: Denies: Blood Transfusion Reaction Other Surgeries: No: , Pacemaker Amputation: No Fractures: No - *Social History Smoking Status: Never smoker Alcohol Intake: never Alcohol Intake Frequency:: other Substance Use Type: denies use *Occupational Status:: unemployed Housing: house Household Members: significant other, children *Travel in the last 8 weeks: None Family Hx:: No significant family history Review of Systems - Review of Systems Review of systems:: pertinent systems reviewed and negative unless documented below Meds Home Medications Medication Instructions Recorded Confirmed Type Pnv No.95/Ferrous Fum/Folic AC 1 each PO DAILY 03/30/19 04/09/19 History [ Caplet] cephalexin 500 mg tablet 500 mg PO QID 10 Days #40 tab 04/06/19 04/09/19 Rx Allergies Allergy/AdvReac Type Severity Reaction Status Date / Time No Known Allergies Allergy Verified 04/09/19 09:20 Objective Vital signs: Pulse Resp BP Pulse Ox 93 H 18 141/85 H 98 06/12/21 10:19 06/12/21 10:19 06/12/21 10:19 06/12/21 10:19 Narrative: General: Alert and oriented x3, no acute distress, pleasant and cooperative Lungs: Resps E/U, symmetric chest expansion E
== END ==
PROVIDERS: Visit Provider Anesthesiology Pain Medicine
DX: M47.896 Other spondylosis, lumbar region (principal); M54.16 Radiculopathy, lumbar region; M96.1 Postlaminectomy syndrome, not elsewhere classified
CPT/HCPCS: 99202; G0463

== ENCOUNTER 2021-06-30 10:15 | Day surgery (SDC) | payer OTHER, SELFPAY ==
[2021-06-30 10:26] VITALS: BP 130/82; BP 131/83; BP 145/79; PULSE 94; PULSE 96; RESP 16; RESP 20; TEMP 36.8; O2SAT 97; O2SAT 98; BMI 28.8
[2021-06-30 11:11] VITALS: BP 129/77; PULSE 82; RESP 20; O2SAT 98
--- NOTE | 2021-06-30 11:56 | HMH.PMPROC ---
- Procedure Date: 06/30/21 Time: 11:56 Anesthesiologist:: Jean Whiteside MD Complications:: None Pre-procedure Diagnosis:: Degenerative disc disease of lumbar spine with lumbar radiculopathy symptoms Post-procedure Diagnosis:: Same Indications for Procedure:: The patient is a pleasant 46-year-old white female who we are treating for low back pain with lumbar radiculopathy symptoms. She has increasing pain in her back rating down her left leg. We will do a lumbar pleural steroid injection today to see if this helps with her pain symptoms. Procedure Details:: Informed consent was obtained and the risk and benefits of the procedure was explained to the patient. The patient was taken to the procedure room. The patient was placed prone on the procedure table. The patient was prepped and draped in sterile fashion. C-arm fluoroscopy was used to view the lumbar spine. Skin and subcutaneous tissues were anesthetized using lidocaine. I placed an 18-gauge epidural needle and advanced into the L4-L5 interspace using fluoroscopic guidance and [id number] to air. After confirmation of needle placement in the epidural space with dye I injected 2 mL of lidocaine 1.5% with Depo-Medrol 80 mg. Patient tolerated the procedure well with no complications. Plan and Disposition:: We will follow-up with her in 2 weeks. Will reevaluate her symptoms at that time.
== END 2021-06-30 11:12 | disposition home or self-care (01) ==
LOC: SC.PAINP 10:15
PROVIDERS: PCP Family Medicine; Visit Provider Anesthesiology
DX: M51.16 Intervertebral disc disorders with radiculopathy, lumbar region (principal)
CPT/HCPCS: 62323; J1040; Q9966

== ENCOUNTER → 2021-07-27 13:51 | Outpatient (POV) | payer OTHER, SELFPAY ==
[2021-07-27 13:56] VITALS: BP 149/91; PULSE 96; RESP 20; O2SAT 100; BMI 29.8
--- NOTE | 2021-07-27 14:24 | HMH.PAINSOAP ---
[facility] Pain Management SOAP Note Subjective:: Patient is a pleasant 46-year-old female who is here for a follow up after lumbar epidural steroid injection on June 30, 2021. Patient is currently being treated for degenerative disc disease of lumbar spine with lumbar radiculopathy symptoms. After the procedure, patients reports 40 to 50% relief and rates pain today at 6 out of 10. Patient denies any issues after the procedure. Patient states that she had significant pain for about 3 days after the injection that goes down her left thigh. This pain has resolved. Today, patient states that she still having a lot of pain in her low back that radiates to bilateral lower extremities. Patient has had surgical procedures in her lumbar spine that was done by Dr. Juarez. She is also complaining of intermittent charley horse type of pain on her posterior left thigh at night. This pain has woken her up from sleep. [facility] number [id number]. Patient is not on any scheduled medications. Drug screens have been reviewed and appropriate. Review of Systems: General: No recent weight changes, no fever, no sleep disturbances Respiratory: No cough, no shortness of air, no recurring pulmonary infections Cardiovascular/peripheral vascular: No chest pain, no palpitations, no edema, no shortness of breath Gastrointestinal: No new onset incontinence, normal bowel movements reported Genitourinary: No new onset incontinence Musculoskeletal: Low back pain Psychiatric: [Normal mood/affect] Neurological: [Denies weakness in extremities], [denies balance issues] Objective:: Physical Exam: General: Alert and oriented x3, no acute distress, pleasant and cooperative, [on room air] Lungs: Respirations even and unlabored, symmetrical chest expansion Eyes: PERRL Musculoskeletal: Flexion and extension of lumbar [spine] somewhat guarded secondary to pain, [antalgic gait noted] Neurological: Speech clear, no gross sensory deficit Assessment:: Degenerative disc disease of lumbar spine with lumbar radiculopathy symptoms Postlaminectomy syndrome Plan:: Patient had minimal relief after her lumbar epidural steroid injection. Patient states that she still having low back pain that radiates to bilateral lower extremities, worse on the left. She is also complaining of charley horse type of pain on her posterior thigh that comes at night. She takes [id number] medications for pain. She has had lumbar surgical procedures done by Dr. Juarez in the past. We will schedule the patient for a lumbar epidural steroid injection. Risks and benefits of the procedure have been explained to the patient. Patient would like to proceed with the procedure. Patient is not on any blood thinners. For posterior thigh pain, I will start the patient on Flexeril 5 mg at night. We would like to see the patient back after injection. Patient has been instructed to contact the clinic with any concerns before the next appointment. Dr. Whiteside has reviewed this note and agrees with this plan of care. This note was dictated using voice recognition software and make contain errors or omissions. [facility] History Medical History: Denies:: Cancer, Diabetes Mellitus Type 1, Diabetes Mellitus Type 2, Internal Pacemaker, MRSA, Seizures *Have you ever received a pneumonia vaccine?: No *Have you received a flu vaccine this season?: No Other Medical History: Denies: Blood Transfusion Reaction Laterality Cases: Bilateral: Other Other Surgeries: No: , Pacemaker Amputation: No Fractures: No - *Social History Smoking Status: Never smoker Alcohol Intake: never Alcohol Intake Frequency:: other Substance Use Type: denies use *Occupational Status:: other Housing: house Household Members: significant other, children *Travel in the last 8 weeks: None Family Hx:: No significant family history
== END ==
PROVIDERS: Visit Provider Student in an Organized Health Care Education/Training Program
DX: M51.16 Intervertebral disc disorders with radiculopathy, lumbar region (principal); M96.1 Postlaminectomy syndrome, not elsewhere classified
CPT/HCPCS: 99212; G0463

== ENCOUNTER 2021-08-11 10:39 | Day surgery (SDC) | payer OTHER, SELFPAY ==
[2021-08-11 10:50] VITALS: BP 122/70; PULSE 90; RESP 18; TEMP 37.1; O2SAT 98; BMI 28.8
[2021-08-11 11:04] VITALS: BP 155/82; PULSE 93; RESP 18; O2SAT 96
[2021-08-11 11:06] VITALS: BP 167/109; PULSE 91; RESP 18; O2SAT 98
[2021-08-11 11:10] VITALS: BP 114/71; PULSE 87; RESP 20; O2SAT 96
--- NOTE | 2021-08-11 11:12 | HMH.PMPROC ---
- Procedure Date: 08/11/21 Time: 11:12 Anesthesiologist:: Neeraj Shultz CRNA Complications:: None Pre-procedure Diagnosis:: Generative disc disease lumbar spine multilevels. Post-procedure Diagnosis:: Same Indications for Procedure:: Patient is a pleasant 46-year-old female that comes to our clinic today for a second lumbar epidural steroid injection at the L3-4 level. Patient reports moderate pain relief from her first lumbar epidural steroid injection. She rates her pain 6/10 today. Patient has had lumbar disc surgery in the past. Her main complaint is lumbar back with some leg radicular symptoms. At times. Procedure Details:: Procedure: Lumbar epidural steroid injection under fluoroscopy Informed consent was obtained and the risks and benefits of the procedure were explained to the patient. The patient was taken to the procedure room and noninvasive monitors placed, including noninvasive blood pressure cuff and pulse oximeter. The back was viewed using C-arm Fluoroscopy and prepped using Betadine as a cleansing solution and the L4-L5 interspace was palpated. Skin and subcutaneous tissues were anesthetized using lidocaine 1.5% and a 25-gauge needle. After this, an 18-gauge Touhy epidural needle was placed into the L4-L5 interspace and advanced using fluoroscopic guidance and loss of resistance to air until the epidural space was encountered. After confirmation of needle placement in the epidural space, with dye, a solution containing lidocaine 1.5%, 4 mL and Depo-Medrol 80 mg were incrementally injected into the lumbar epidural space. The patient tolerated the procedure well with no complications. The patient was observed in the Pain Clinic and then discharged home neurologically intact. Plan and Disposition:: Patient was discharged without difficulty. She will return to follow-up
== END 2021-08-11 11:20 | disposition home or self-care (01) ==
LOC: SC.PAINP 10:40
PROVIDERS: PCP Family Medicine; Visit Provider Nurse Anesthetist, Certified Registered
DX: M51.16 Intervertebral disc disorders with radiculopathy, lumbar region (principal); M96.1 Postlaminectomy syndrome, not elsewhere classified
CPT/HCPCS: 62323; J1040

== ENCOUNTER → 2021-08-18 14:01 | Outpatient (CLI) | payer OTHER, SELFPAY ==
--- NOTE | 2021-08-18 14:03 | MM_ITS ---
PROCEDURE INFORMATION: Exam: MG Left Diagnostic Breast Tomosynthesis Exam date and time: 08/18/2021 2:09 PM Age: 46 years old Clinical indication: Continued six-month follow-up left asymmetry, since 11/24/2020. TECHNIQUE: Imaging protocol: Left Diagnostic tomosynthesis and 2D mammography including computer-aided detection (CAD) when performed. Unilateral or bilateral exam. Spot compression added. COMPARISON: 1. MG MM DIG MAMM DX UNILAT LT CAD 12/19/2020 1:57 PM 2. MG MM DIG SCREENING MAMM BI W/CAD 11/24/2020 4:11 PM 3. US BREAST LT COMPLETE 12/19/2020 1:25 PM FINDINGS: MAMMOGRAPHY: Breast composition: There are scattered areas of fibroglandular density. Mass: Stable 1.7 cm focal masslike asymmetry in the left upper outer quadrant, posterior 3rd. No new or suspicious mass. Architectural distortion: None. Calcifications: No suspicious calcifications. Asymmetric density: None. Skin thickening: None. Axillary adenopathy: None. IMPRESSION: No interval change, advise continued six-month follow-up left mammogram, patient is due for bilateral mammogram in November 2021, unless otherwise clinically indicated. ASSESSMENT: BI-RADS Category 3: Probably benign
== END ==
PROVIDERS: PCP Family Medicine; Visit Provider Nurse Practitioner Obstetrics & Gynecology
DX: R92.8 Other abnormal and inconclusive findings on diagnostic imaging of breast (principal)
CPT/HCPCS: 77061; 77065; G0279

== ENCOUNTER 2021-09-06 13:00 | Outpatient (RCR) | payer OTHER, SELFPAY | END 2021-09-06 13:05 | disposition home or self-care (01) | LOC: OT 13:00 | PROVIDERS: PCP Family Medicine; Visit Provider Nurse Practitioner Family | DX: M77.12 Lateral epicondylitis, left elbow (principal) | CPT/HCPCS: 97165 ==

== ENCOUNTER → 2021-09-07 10:18 | Outpatient (POV) | payer OTHER, SELFPAY ==
[2021-09-07 10:29] VITALS: BP 128/80; PULSE 88; RESP 18; TEMP 36.8; O2SAT 100; BMI 29.8
--- NOTE | 2021-09-07 12:59 | HMH.PAINSOAP ---
[facility] Pain Management SOAP Note Subjective:: Patient is a pleasant 46-year-old female who presents today for follow-up after a lumbar epidural steroid injection on August 11, 2021. Patient is currently being treated for degenerative disc disease of lumbar spine with lumbar radiculopathy symptoms. After the procedure, patient had significant relief of about 80 to 90% that lasted for about a week. Denies any issues after the procedure. This is the patient's second epidural injection that significantly helped her. She rates her pain today as 6 out of 10. I also started her on Flexeril 5 mg at bedtime because she was having pain at night. This is helping the patient well and was wanting refills on this medication. In regards to her back pain, patient says that most of her pain is around her low back that radiates to bilateral lower extremities. This is worse with lumbar flexion, extension, and rotation. Patient cannot tolerate any prolonged activity such as standing and walking. She was previously seen at a neurosurgery clinic with Dr. Randall Juarez in 2013 who did a lumbar procedure. Denies any precipitating factors. Denies any loss of bowel and bladder functions. [facility] [phone]. Patient is not on any scheduled medications. Review of Systems: General: No recent weight changes, no fever, no sleep disturbances Respiratory: No cough, no shortness of air, no recurring pulmonary infections Cardiovascular/peripheral vascular: No chest pain, no palpitations, no edema, no shortness of breath Gastrointestinal: No new onset incontinence, normal bowel movements reported Genitourinary: No new onset incontinence Musculoskeletal: Low back pain Psychiatric: [Normal mood/affect] Neurological: [Denies weakness in extremities], [denies balance issues] Objective:: Physical Exam: General: Alert and oriented x3, no acute distress, pleasant and cooperative Lungs: Respirations even and unlabored, symmetrical chest expansion Eyes: PERRL Musculoskeletal: Flexion and extension of lumbar [spine] somewhat guarded secondary to pain, [antalgic gait noted] Neurological: Speech clear, no gross sensory deficit Assessment:: Degenerative disc disease of lumbar spine with lumbar radiculopathy symptoms Plan:: Patient presents today with low back pain that radiates to bilateral lower extremities. Patient has tried and failed conservative therapies such as oral medication, physical therapy, and home exercises for getting 6 weeks. Patient had 2 successful lumbar epidural steroid injection that provided 70 to 80% relief but only lasted temporarily. I discussed with the patient that she is a good candidate for a spinal cord stimulator. I have discussed this procedure in detail with the patient and patient is interested in this procedure. We will refer the patient for a psychiatric evaluation. We will see the patient after her psychiatric eval. Patient has been instructed to contact the clinic with any concerns before the next appointment. Dr. Whiteside has reviewed this note and agrees with this plan of care. This note was dictated using voice recognition software and make contain errors or omissions. [facility] History Medical History: Denies:: Cancer, Diabetes Mellitus Type 1, Diabetes Mellitus Type 2, Internal Pacemaker, MRSA, Seizures *Have you ever received a pneumonia vaccine?: No *Have you received a flu vaccine this season?: No Other Medical History: Denies: Blood Transfusion Reaction Laterality Cases: Bilateral: Other Other Surgeries: No: , Pacemaker Amputation: No Fractures: No - *Social History Smoking Status: Never smoker Alcohol Intake: never Alcohol Intake Frequency:: other Substance Use Type: denies use *Occupational Status:: unemployed Housing: house Household Members: significant other, children *Travel in the last 8 weeks: None Family Hx:: No significant family history
== END ==
PROVIDERS: Visit Provider Student in an Organized Health Care Education/Training Program
DX: M51.16 Intervertebral disc disorders with radiculopathy, lumbar region (principal)
CPT/HCPCS: 99212; G0463

== ENCOUNTER → 2021-12-20 08:24 | Outpatient (POV) | payer OTHER, SELFPAY ==
[2021-12-20 08:33] VITALS: BP 146/91; PULSE 90; RESP 18; TEMP 36.8; O2SAT 99; BMI 28.8
--- NOTE | 2021-12-20 15:06 | EXP.PAIN.SOA ---
[facility] Pain Management SOAP Note Subjective:: Patient is a pleasant 46-year-old female who presents today for follow-up. We are currently treating the patient for degenerative disc disease of lumbar spine with lumbar radiculopathy symptoms. Today she rates her pain a 7 out of 10 and states is all primarily in her low back that radiates into her left leg. She describes this as a numbing aching sensation that is worse with increased activity and at night. Patient states she has frequent muscle spasms or charley horses during the night. She states this does affect her sleep. We have done injective therapy in the past that have provided significant improvement of her symptoms including to lumbar epidural injections. Patient has not on any scheduled medications. Her Raudel is [id number]. Its been reviewed and appropriate. Review of Systems: General: No recent weight changes, no fever, no sleep disturbances Respiratory: No cough, no shortness of air, no recurring pulmonary infections Cardiovascular/peripheral vascular: No chest pain, no palpitations, no edema, no shortness of breath Gastrointestinal: No new onset incontinence, normal bowel movements reported Genitourinary: No new onset incontinence Musculoskeletal: Low back pain, left leg pain Psychiatric: [Normal mood/affect] Neurological: [Denies weakness in extremities], [denies balance issues] Objective:: Physical Exam: General: Alert and oriented x3, no acute distress, pleasant and cooperative Lungs: Respirations even and unlabored, symmetrical chest expansion Eyes: PERRL Musculoskeletal: Flexion and extension of lumbar [spine] somewhat guarded secondary to pain, [antalgic gait noted] Neurological: Speech clear, no gross sensory deficit Assessment:: Degenerative disc disease of lumbar spine with lumbar radiculopathy symptoms, restless leg syndrome Plan:: Patient continues to have significant pain along her low back radiating into her left leg. I have discussed with the patient regarding starting her on ropinirole 0.25 mg at night for possible restless leg syndrome. I will order this and give a 14-day supply. I have discussed with the patient regarding having a repeat lumbar epidural. Risk and benefits were discussed with the patient. She would like to proceed forward with this injection. She is not currently on any blood thinners. We will schedule her for a LESI at L4-L5. Patient has been instructed to contact the clinic with any concerns before the next appointment. Dr. Whiteside has reviewed this note and agrees with this plan of care. This note was dictated using voice recognition software and make contain errors or omissions. PFSH PFSH Social History Smoking Status: Never smoker alcohol intake: never substance use type: denies use current occupational status: unemployed household members: significant other and children housing: house current occupation: [employer] caffeine: Yes
== END | disposition home or self-care (01) ==
PROVIDERS: PCP Family Medicine; Visit Provider Nurse Practitioner Family
DX: M51.16 Intervertebral disc disorders with radiculopathy, lumbar region (principal); G25.81 Restless legs syndrome
CPT/HCPCS: 99212; G0463

== ENCOUNTER → 2022-01-10 12:15 | Outpatient (CLI) | payer OTHER, SELFPAY ==
[2022-01-10 14:41] LABS: Anion Gap 17.4 mEq/L (5-15); Blood Urea Nitrogen 12 mg/dl (7-17); Calcium 8.8 mg/dl (8.4-10.2); Carbon Dioxide 22 mmol/L (22.0-30.0); Chloride 104 mmol/L (98-107); Estimated Glomerular Filt Rate 90 ml/min (>60); GFR (African American) 109 ML/MIN (>60); Glucose 93 mg/dl (74-100); Potassium 4.4 mmoL/L (3.5-5.1); Sodium 139 mmol/L (136-145)
== END ==
PROVIDERS: PCP Family Medicine; Visit Provider Anesthesiology
DX: Z01.812 Encounter for preprocedural laboratory examination (principal); Z20.822 Contact with and (suspected) exposure to COVID-19; M47.816 Spondylosis without myelopathy or radiculopathy, lumbar region
CPT/HCPCS: 36415; 80048; C9803; U0003; U0005

== ENCOUNTER 2022-01-12 06:30 | Day surgery (SDC) | payer OTHER, SELFPAY ==
[2022-01-09 12:25] VITALS: BMI 31.8
[2022-01-11 08:06] LABS: HCG Qualitative, Serum Negative (Negative)
[2022-01-12 07:00] VITALS: BP 131/49; PULSE 91; RESP 18; TEMP 36.9; O2SAT 98
[2022-01-12 07:24] LABS: Basophils % 0.6 % (0.1-2.0); Eosinophils # 0.1 K/mm3 (0.0-0.4); Eosinophils % 1.8 % (0.1-12.0); Hematocrit 41.7 % (37.0-47.0); Hemoglobin 13.3 g/dL (12.2-16.2); Lymphocytes # 1.3 K/mm3 (0.7-4.5); Lymphocytes % 21.1 % (10-50); Mean Corpuscular HGB Conc 31.8 g/dL (31.8-35.4); Mean Corpuscular Hemoglobin 29.1 pg (27.0-31.2); Mean Corpuscular Volume 91.4 fl (81-99); Monocytes # 0.4 K/mm3 (0.1-1.0); Monocytes % 7.1 % (1.7-9.3); Neutrophils # 4.2 K/mm3 (1.8-7.8); Neutrophils % 69.3 % (37.0-80.0); Platelet Count 217 K/mm3 (142-424); Red Blood Count 4.56 M/mm3 (4.20-5.40); Red Cell Distribution Width 13.7 % (11.5-17.5)
--- NOTE | 2022-01-12 07:41 | P.PN_ITS ---
[facility] Medical History Degenerative joint disease (DJD) of lumbar spine History of back pain Lumbar radiculopathy Post laminectomy syndrome Surgical History History of back surgery History of bilateral tubal ligation History of dilatation and curettage Family History Mother Family history of myocardial infarction Sister Family history of diabetes mellitus type II Social History Smoking Status: Never smoker alcohol intake: never substance use type: denies use current occupational status: unemployed Travel in the last 8 weeks: Inside the [place] household members: significant other and children housing: house current occupation: [employer] caffeine: Yes [facility] Anesthesia Checklist Patient Identification Patient Identification: Arm Band and Verbal (Name & ) Structural Data Admitted From: Home Planned Operative Procedure/s: Pain Pump Trial Consent for Planned Operative Procedure(s) Verified: Yes Verified Documents: Surgical Consent Additional verifications Patient : No Anesthesia Reactions: No Hx Blood Transfusions: No Blood Transfusion Reaction: No Airway Assessment C-Spine Mobility Assessed: Yes TMJ Mobility Assessed: Yes Dentition: Good Dentition Neurological Assessment Level of Consciousness: Awake, Alert and Appropriate Anesthesia Plan Anesthesia Risk discussed: Yes ASA Class: I Anesthesia Type: MAC
[2022-01-12 08:43] VITALS: BP 125/66; PULSE 104; RESP 16; TEMP 36.4; O2SAT 97
--- NOTE | 2022-01-12 08:52 | EXP.OP.NOTE ---
Date of procedure: 01/12/22 Pre-op Diagnosis:: Degenerative disc disease of lumbar spine with lumbar radiculopathy symptoms and restless leg syndrome Post-op Diagnosis:: Same Procedure performed:: Spinal cord stimulator trial with epidural lead placement x2 Surgeon:: Jean Whiteside MD DATA PROCESSING OPERATOR:: Mikael Drake Anesthesia: MAC Estimated blood loss (mL): 1 Clinical Note:: This patient is a pleasant 46-year-old white female who we are treating for low back pain with lumbar radiculopathy symptoms. She has failed all previous conservative treatments including injections, oral medications, physical therapy and she is not a surgical candidate. She has had a successful psychological evaluation. Most of her pain is in the back and down her legs left greater than right. She does have muscle spasms or charley horses during the night which affect her sleep. We will plan on spinal cord stimulator trial today to see if this helps with her pain symptoms and muscle spasms. Operative findings:: None Operative note:: Informed consent was obtained risk and benefits of the procedure were explained to the patient. Patient was taken the operating room placed prone on the procedure table. She was prepped and draped in sterile fashion. C-arm fluoroscopy was used to view the lumbar spine. The skin and subcutaneous tissues were anesthetized using lidocaine. I placed a 17-gauge epidural needle and advanced into the L1-L2 interspace. After confirmation of needle placement in the epidural space stimulator lead was inserted and advanced very easily to the T7-T8-T9 vertebral body. Lead placement was checked in AP and lateral views. A second needle was inserted and advanced again into the L1-L2 interspace. Again after confirmation of needle placement in the epidural space a second stimulating lead was inserted and advanced to the T7-T8-T9 vertebral body. Lead placement was checked in AP and lateral views. The first lead was done with the aid of a percutaneous lead introducer kit. The second lead went up with no problem. Patient tolerated the procedure well with no complications. The patient was programmed by the [email or web address] international representative with good stimulation in all areas of pain. Patient was discharged home neurologically intact with good relief of pain symptoms. We will follow-up with her in 1 week for lead pull. We will continue to make changes throughout the week and adjust as needed. Condition: stable Disposition: PACU Complications:: None
[2022-01-12 08:58] VITALS: BP 114/57; PULSE 96; RESP 16; O2SAT 98
[2022-01-12 09:13] VITALS: BP 116/90; PULSE 85; RESP 16; O2SAT 98
[2022-01-12 09:28] VITALS: BP 114/74; PULSE 86; RESP 16; O2SAT 99
[2022-01-12 10:28] VITALS: BP 117/71; PULSE 84; RESP 16; O2SAT 98
== END 2022-01-12 10:28 | disposition home or self-care (01) ==
PROVIDERS: PCP Family Medicine; Visit Provider Anesthesiology
PROC: (CPT 63650; principal; 2022-01-12 07:30)
DX: M51.16 Intervertebral disc disorders with radiculopathy, lumbar region (principal); G25.81 Restless legs syndrome
CPT/HCPCS: 63650 ×2; 84703; 85025; 96374; C1778; J2405

== ENCOUNTER → 2022-01-18 08:18 | Outpatient (POV) | payer OTHER, SELFPAY ==
--- NOTE | 2022-01-18 08:47 | EXP.PAIN.SOA ---
[facility] Pain Management SOAP Note Subjective:: Patient is a pleasant 46-year-old female who presents today for follow-up from spinal cord stimulator trial on 01/12/2022. We are currently treating the patient for degenerative disc disease of lumbar spine with lumbar radiculopathy symptoms, restless leg syndrome. Patient states that she has had about 30 to 35% improvement with the spinal cord stimulator trial. She states she was able to increase her activity however she did not notice significant changes in her pain sensations. Today the patient's pain is a 5 out of 10. She states the pain is primarily in her low back into her hips with occasional charley horses and cramping in her legs at night. Previously she was prescribed ropinirole for 2-week dose and she states that did seem to help with her leg pain. She is requesting a refill at today's date. Patient also has been prescribed muscle relaxers that help with her pain and she is requesting refill on this medication as well. She is not on any scheduled medications. Her Raudel is [phone]. It has been reviewed and appropriate. Review of Systems: General: No recent weight changes, no fever, no sleep disturbances Respiratory: No cough, no shortness of air, no recurring pulmonary infections Cardiovascular/peripheral vascular: No chest pain, no palpitations, no edema, no shortness of breath Gastrointestinal: No new onset incontinence, normal bowel movements reported Genitourinary: No new onset incontinence Musculoskeletal: Low back pain, hip pain, leg pain Psychiatric: [Normal mood/affect] Neurological: [Denies weakness in extremities], [denies balance issues] Objective:: Physical Exam: General: Alert and oriented x3, no acute distress, pleasant and cooperative Lungs: Respirations even and unlabored, symmetrical chest expansion Eyes: PERRL Musculoskeletal: Flexion and extension of lumbar [spine] somewhat guarded secondary to pain, [antalgic gait noted] Neurological: Speech clear, no gross sensory deficit Assessment:: Degenerative disc disease lumbar spine with lumbar radiculopathy symptoms Plan:: Patient did not have significant improvement with the spinal cord stimulator trial. Patient continues to have significant pain in her low back that radiates into her lower extremities. She did have decreased range of motion of her lumbar spine during today's visit. I have discussed with her regarding a pain pump trial. Risk and benefits were discussed with the patient. Educational handouts were given to her and we will discuss at her next follow-up visit if this is something she would like to look into. I will refill her ropinirole and muscle relaxer and provide a 1 month supply of these medication. Patient will follow-up in 2 weeks. She will return to clinic in 2 weeks for reevaluation of symptoms and follow-up. Patient has been instructed to contact the clinic with any concerns before the next appointment. Dr. Whiteside has reviewed this note and agrees with this plan of care. This note was dictated using voice recognition software and make contain errors or omissions. [facility] Medical History Degenerative joint disease (DJD) of lumbar spine History of back pain Lumbar radiculopathy Post laminectomy syndrome Surgical History History of back surgery History of bilateral tubal ligation History of dilatation and curettage Family History Mother Family history of myocardial infarction Sister Family history of diabetes mellitus type II Social History Smoking Status: Never smoker alcohol intake: never substance use type: denies use current occupational status: unemployed Travel in the last 8 weeks: Inside the [place] household members: significant other and children housing:
[2022-01-18 09:06] VITALS: BP 137/88; PULSE 95; RESP 18; TEMP 36.8; O2SAT 100; BMI 28.8
== END | disposition home or self-care (01) ==
PROVIDERS: PCP Family Medicine; Visit Provider Nurse Practitioner Family
DX: M51.16 Intervertebral disc disorders with radiculopathy, lumbar region (principal)
CPT/HCPCS: 99212; 99213; G0463

== ENCOUNTER → 2022-01-29 08:53 | Outpatient (POV) | payer MEDICARE, OTHER, SELFPAY ==
[2022-01-29 09:02] VITALS: BP 138/80; PULSE 89; RESP 18; TEMP 37.1; O2SAT 99; BMI 28.8
--- NOTE | 2022-01-29 09:45 | EXP.PAIN.SOA ---
[facility] Pain Management SOAP Note Subjective:: Patient is a pleasant 46-year-old female who presents today for follow-up. Patient is Being treated for degenerative disc disease of the lumbar spine with lumbar radiculopathy symptoms, restless leg syndrome, left hip pain, postlaminectomy syndrome. When we last saw this patient, we had tried spinal cord stimulator trial with the patient. After her 1 week of trial, patient had minimal relief of around 30 to 35%. She continues to have pain on her low back that radiates to her left lower extremity. She has tried lumbar epidural straight injections that provided significant but temporary relief. She describes the pain as constant, achy, and dull. She cannot tolerate any prolonged sitting, standing, and walking. For pain, she is prescribed ropinirole and muscle relaxer. Denies any side effects from these medications. She is needing refills on her muscle relaxer. She is also taking ibuprofen 600 mg 3 times a day. She is not on any scheduled medications. Raudel [phone]. Review of Systems: General: No recent weight changes, no fever, no sleep disturbances Respiratory: No cough, no shortness of air, no recurring pulmonary infections Cardiovascular/peripheral vascular: No chest pain, no palpitations, no edema, no shortness of breath Gastrointestinal: No new onset incontinence, normal bowel movements reported Genitourinary: No new onset incontinence Musculoskeletal: Low back pain, left hip pain Psychiatric: [Normal mood/affect] Neurological: [Denies weakness in extremities], [denies balance issues] Objective:: Physical Exam: General: Alert and oriented x3, no acute distress, pleasant and cooperative Lungs: Respirations even and unlabored, symmetrical chest expansion Eyes: PERRL Musculoskeletal: Flexion and extension of lumbar [spine] somewhat guarded secondary to pain, [antalgic gait noted]; left SI is positive for ROBERTO, Dianelys's, [place]'s, Gaenslen's, compression, and distraction. Tender to palpation around the left or trochanteric bursa and left lateral upper buttock. Neurological: Speech clear, no gross sensory deficit Assessment:: Sacroiliitis, GERD trochanter bursitis, degenerative disc disease of lumbar spine with lumbar radiculopathy symptoms, postlaminectomy syndrome Plan:: Patient tried the spinal cord stimulator trial for about a week and had 30 to 35% of relief. We did not move forward with permanent placement of spinal cord stimulator. On exam today patient is tender to palpation around the left SI joint and left greater trochanteric bursa. She does have a positive left SI exam. We will schedule the patient for a left SI and left greater enteric bursa injections. If the patient gets minimal relief from this injection, we can try a left superior cluneal nerve block. We also discussed with the patient in the past that she might be a good candidate for intrathecal pain pump. Her psych evaluation deemed her competent appropriate to get the intrathecal pain pump. I will continue the patient's Flexeril 5 mg at bedtime. I will start the patient on diclofenac 75 mg twice a day. Patient is to stop taking meloxicam and ibuprofen when taking diclofenac. Patient has been instructed to contact the clinic with any concerns before the next appointment. Dr. Whiteside has reviewed this note and agrees with this plan of care. This note was dictated using voice recognition software and make contain errors or omissions. [facility] Medical History Degenerative joint disease (DJD) of lumbar spine History of back pain Lumbar radiculopathy Post laminectomy syndrome Surgical History History of back surgery History of bilateral tubal ligation History of dilatation and curettage Family History Mother Family history of myocardial infarction Sister Family history of diabetes mellitus type II Social History Smoking Status: Never smoker alcohol intake: never substance use type: denies use current occupational status: disabled Travel in the last 8 weeks: None household members: significant other and children housing: house current occupation: [employer] caffeine: Yes
== END | disposition home or self-care (01) ==
PROVIDERS: Visit Provider Nurse Practitioner Family
DX: M51.16 Intervertebral disc disorders with radiculopathy, lumbar region (principal); M96.1 Postlaminectomy syndrome, not elsewhere classified; M46.1 Sacroiliitis, not elsewhere classified; M70.60 Trochanteric bursitis, unspecified hip; G25.81 Restless legs syndrome; Z79.899 Other long term (current) drug therapy
CPT/HCPCS: 99212; G0463

== ENCOUNTER 2022-02-16 12:06 | Day surgery (SDC) | payer MEDICARE, OTHER, SELFPAY ==
[2022-02-16 12:55] VITALS: BP 147/71; PULSE 84; RESP 20; TEMP 36.9; O2SAT 98; BMI 28.7
[2022-02-16 13:09] VITALS: BP 136/83; PULSE 92; RESP 18; O2SAT 98
[2022-02-16] MEDS: BUPIVACAINE 0.25% 10ML INJ 25 MG IJ (13:09)
[2022-02-16] MEDS: LIDOCAINE 1% 5ML PF VIAL 10 ML (13:10)
[2022-02-16] MEDS: IOPAMIDOL-200 (41%);10ML VIAL 10 ML IV (13:18)
[2022-02-16 13:23] VITALS: BP 129/77; PULSE 84; RESP 20; O2SAT 98
--- NOTE | 2022-02-16 15:21 | P.PCN_ITS ---
Procedure Date: 02/16/22 Time: 15:21 Anesthesiologist:: Jean Whiteside MD Complications:: None Pre-procedure Diagnosis:: Sacroiliitis and trochanteric bursitis Post-procedure Diagnosis:: Same Indications for Procedure:: This patient is a pleasant 46-year-old white female who we are treating for left-sided hip pain. She is tender over the left SI joint. She does have positive Nathanael's test on left side. She is positive [place]'s test on left side. Is positive SI joint compression test on left side. She has positive distraction test on the left side. We will plan left SI joint injection under fluoroscopy today to help with pain symptoms. She is also tender over the left trochanteric bursa. We will plan a left trochanteric bursa injection under fluoroscopy. Procedure Details:: Left SI joint injection under fluoroscopy Informed consent was obtained and the risks and benefits of the procedure was explained to the patient. Patient was taken to the procedure room. Patient was placed prone on the procedure table. The left hip was prepped using ChloraPrep. The skin and subcutaneous tissues were anesthetized using lidocaine. I placed a 22-gauge spinal needle into the inferior aspect of the left SI joint. Needle placement was confirmed with dye. After this we injected 5 mL bupivacaine 0.25% and Depo-Medrol 40 mg into the left SI joint. The patient tolerated the procedure well with no complication. Left trochanteric bursa injection under fluoroscopy informed consent was obtained and the risk and benefits of the procedure was explained to the patient. The patient was taken to procedure room and placed prone on the procedure table. The left hip was prepped using ChloraPrep. The skin and subcutaneous tissues were anesthetized using lidocaine. I placed a 22- gauge spinal needle under fluoroscopic guidance and advanced until it contacted the left greater trochanter. Needle placement was confirmed with dye. After this we injected 5 mL bupivacaine 0.25% and Depo-Medrol 40 mg. Patient tolerated the procedure well with no complications. Plan and Disposition:: We will follow-up with her in 2 weeks. Will reevaluate symptoms at that time.
== END 2022-02-16 13:24 | disposition home or self-care (01) ==
LOC: SC.PAINP 12:07
PROVIDERS: PCP Family Medicine; Visit Provider Nurse Anesthetist, Certified Registered
DX: M46.1 Sacroiliitis, not elsewhere classified (principal); M70.62 Trochanteric bursitis, left hip
CPT/HCPCS: 20610; 27096; 77002; G0260; J1030; Q9966

== ENCOUNTER → 2022-03-05 09:31 | Outpatient (POV) | payer MEDICARE, OTHER, SELFPAY ==
--- NOTE | 2022-03-05 09:46 | EXP.PAIN.SOA ---
[facility] Pain Management SOAP Note Subjective:: Patient is a pleasant 47-year-old female who presents today for follow-up of left SI and left bursa injection on 02/16/2022. We are currently treating the patient for degenerative disc disease of lumbar spine with lumbar radiculopathy symptoms, restless leg syndrome, left hip pain, postlaminectomy syndrome, greater trochanteric bursitis, sacroiliitis. Today she states that she has had at least 60% improvement of her pain symptoms following these injections and feels like they are still continuing to provide some improvement. Today she rates her pain a 3 out of 10. She states the pain is in her low back and radiates into her left extremity. Patient states she has been able to increase her activity and range of motion following this injection. Patient denies any new trauma or injury. Patient denies any change in location or type of pain she experiences. Patient frequently has trouble with prolonged sitting standing or walking due to the constant achy dull pain sensations. Patient is managed with diclofenac 75 mg twice daily. Patient does state that she does have some GI upset and that she continues to take this medication with food. Patient states that she does feel like this has improved her pain symptoms along with ropinirole and cyclobenzaprine. Patient denies any side effects to these medications. She is requesting refills at today's visit. Patient is not on any scheduled medications. Her Raudel is [phone]. It has been reviewed and appropriate. Review of Systems: General: No recent weight changes, no fever, no sleep disturbances Respiratory: No cough, no shortness of air, no recurring pulmonary infections Cardiovascular/peripheral vascular: No chest pain, no palpitations, no edema, no shortness of breath Gastrointestinal: No new onset incontinence, normal bowel movements reported Genitourinary: No new onset incontinence Musculoskeletal: Low back pain, left leg pain Psychiatric: [Normal mood/affect] Neurological: [Denies weakness in extremities], [denies balance issues] Objective:: Physical Exam: General: Alert and oriented x3, no acute distress, pleasant and cooperative Lungs: Respirations even and unlabored, symmetrical chest expansion Eyes: PERRL Musculoskeletal: Flexion and extension of lumbar [spine] somewhat guarded secondary to pain, [antalgic gait noted] Neurological: Speech clear, no gross sensory deficit Assessment:: Degenerative disc disease of lumbar spine with lumbar radiculopathy symptoms, restless leg syndrome, left hip pain, postlaminectomy syndrome, greater trochanteric bursitis, sacroiliitis Plan:: Patient has had significant improvement of her symptoms following these last injections and does not require any additional injective therapy at this time. I will refill the patient's cyclobenzaprine 5 mg at night and ropinirole 0.25 mg at bedtime and provide a 1 month supply of these medications. Patient will return to clinic in 1 month for reevaluation of symptoms, medication refill and follow-up. Patient has been instructed to contact the clinic with any concerns before the next appointment. Dr. Whiteside has reviewed this note and agrees with this plan of care. This note was dictated using voice recognition software and make contain errors or omissions. [facility] Medical History Degenerative joint disease (DJD) of lumbar spine History of back pain Lumbar radiculopathy Post laminectomy syndrome Surgical History History of back surgery History of bilateral tubal ligation History of dilatation and curettage Family History Mother Family history of myocardial infarction Sister Family history of diabetes mellitus type II Social History (Updated 02/16/22 @ 13:22 by Juliann Lopez RN) Smoking Status: Never smoker alcohol intake: never substance use type: denies use current occupational status: disabled Travel in the last 8 weeks: None household members: significant other and children housing: house current occupation: [employer] caffeine: Yes
[2022-03-05 09:49] VITALS: BP 128/78; PULSE 88; RESP 18; O2SAT 96; BMI 28.8
== END | disposition home or self-care (01) ==
PROVIDERS: Visit Provider Nurse Practitioner Family
DX: M51.16 Intervertebral disc disorders with radiculopathy, lumbar region (principal); M96.1 Postlaminectomy syndrome, not elsewhere classified; M46.1 Sacroiliitis, not elsewhere classified; M70.60 Trochanteric bursitis, unspecified hip; G25.81 Restless legs syndrome; M25.552 Pain in left hip
CPT/HCPCS: 99212; G0463

== ENCOUNTER → 2022-03-08 13:30 | Outpatient (CLI) | payer MEDICARE, OTHER, SELFPAY ==
--- NOTE | 2022-03-08 13:30 | MM_ITS ---
PROCEDURE INFORMATION: Exam: MG Bilateral Screening 3D Mammography Exam date and time: 03/08/2022 2:18 PM Age: 47 years old Clinical indication: Continued short-term surveillance for left breast asymmetry TECHNIQUE: Imaging protocol: Bilateral Screening tomosynthesis and 2D mammography including computer-aided detection (CAD) when performed. COMPARISON: 1. MG MM DIG MAMM DX UNILAT LT CAD 08/18/2021 2:09 PM 2. MG MM DIG MAMM DX UNILAT LT CAD 12/19/2020 1:57 PM FINDINGS: MAMMOGRAPHY: Breast composition: There are scattered areas of fibroglandular density. Mass: None. Architectural distortion: None. Calcifications: No suspicious calcifications. Asymmetric density: Stable 1.7 cm nodular asymmetry in the posterior left upper outer quadrant. Skin thickening: None. Axillary adenopathy: None. IMPRESSION: Stable asymmetry in the left upper outer quadrant compared to prior mammograms dating back to and including 11/24/2020. A six-month follow-up diagnostic left mammogram is recommended to ensure long-term stability. ASSESSMENT: BI-RADS Category 3: Probably benign
== END ==
PROVIDERS: PCP Family Medicine; Visit Provider Obstetrics & Gynecology
DX: Z12.31 Encounter for screening mammogram for malignant neoplasm of breast
CPT/HCPCS: 77063; 77067

== ENCOUNTER → 2022-04-25 08:39 | Outpatient (POV) | payer OTHER, SELFPAY ==
--- NOTE | 2022-04-25 08:56 | EXP.PAIN.SOA ---
[facility] Pain Management SOAP Note Subjective:: Patient is a pleasant 47-year-old female who presents today for follow-up and medication refill. We are currently treating the patient for degenerative disc disease of lumbar spine with lumbar radiculopathy symptoms, restless leg syndrome, left hip pain, postlaminectomy syndrome lumbar spine, greater trochanteric bursitis, sacroiliitis. Today the patient rates her pain a 6 out of 10. Patient feels like she is back to her baseline that she was previously back in January before she had her left SI and left bursa injection. Patient denies any new trauma or injury. Patient denies any change to location or type of pain she experiences. Patient does state this is a aching, throbbing sensation that is worse with increased activity. Patient does state this does affect her ability to perform activities of daily living such as cooking and cleaning. Patient is currently managed with diclofenac 75 mg twice daily, ropinirole 0.25 mg at bedtime and cyclobenzaprine 5 mg at bedtime. Patient denies any side effects from these medications. She states these medications do help and is requesting a refill during today's visit. Patient is not on any scheduled medications. Her Raudel is [phone]. Its been reviewed and appropriate. Review of Systems: General: No recent weight changes, no fever, no sleep disturbances Respiratory: No cough, no shortness of air, no recurring pulmonary infections Cardiovascular/peripheral vascular: No chest pain, no palpitations, no edema, no shortness of breath Gastrointestinal: No new onset incontinence, normal bowel movements reported Genitourinary: No new onset incontinence Musculoskeletal: Low back pain, left hip pain Psychiatric: [Normal mood/affect] Neurological: [Denies weakness in extremities], [denies balance issues] Objective:: Physical Exam: General: Alert and oriented x3, no acute distress, pleasant and cooperative Lungs: Respirations even and unlabored, symmetrical chest expansion Eyes: PERRL Musculoskeletal: Flexion and extension of lumbar [spine] somewhat guarded secondary to pain, [antalgic gait noted] extreme point tenderness along left SI and left greater trochanteric bursa with positive left Nathanael's, Dianelys's, Gaens[place]'s, compression and distraction exam Neurological: Speech clear, no gross sensory deficit Assessment:: Degenerative disc disease of lumbar spine with lumbar radiculopathy symptoms, postlaminectomy syndrome lumbar spine, restless leg syndrome, left hip pain, greater trochanteric bursitis, sacroiliitis Plan:: Patient is experiencing significant pain in her low back along the left side that radiates into her left hip. Patient did have limited range of motion of her lumbar spine during today's visit along with extreme point tenderness along her left SI and left greater trochanteric bursa. Patient did have a positive left Nathanael's, Dianelys's, [place]'s, compression and distraction exam. I have discussed with the patient that she may benefit from repeat left SI and left bursa injections. Risk and benefits were discussed with the patient. She would like to proceed forward with this plan of care. I will also refill the patient's Flexeril 5 mg at bedtime, ropinirole 0.25 mg at bedtime and diclofenac 75 mg twice daily and provide a 3-month supply of these medications. We will schedule the patient for left SI and left bursa injection. Patient has been instructed to contact the clinic with any concerns before the next appointment. Dr. Whiteside has reviewed this note and agrees with this plan of care. This note was dictated using voice recognition software and make contain errors or omissions. [facility] Disclaimer: The information contained in this section may have been updated after the patient was seen, as this information can be updated by other users. Medical History Degenerative joint disease (DJD) of lumbar spine History
[2022-04-25 09:08] VITALS: BP 124/79; PULSE 94; RESP 18; O2SAT 98; BMI 28.8
== END | disposition home or self-care (01) ==
PROVIDERS: PCP Family Medicine; Visit Provider Nurse Practitioner Family
DX: M51.16 Intervertebral disc disorders with radiculopathy, lumbar region (principal); M96.1 Postlaminectomy syndrome, not elsewhere classified; M46.1 Sacroiliitis, not elsewhere classified; G25.81 Restless legs syndrome; M25.552 Pain in left hip; M70.60 Trochanteric bursitis, unspecified hip
CPT/HCPCS: 99212; G0463

== ENCOUNTER → 2022-04-25 09:08 | Outpatient (CLI) | payer OTHER, SELFPAY ==
[2022-04-25 10:26] LABS: Amphetamine/Metha Screen,Urine Negative ng/ml (<1000); Barbiturates Screen,Urine Negative ng/ml (<200)
[2022-04-25 10:27] LABS: Benzodiazepines Screen,Urine Negative ng/ml (<200)
[2022-04-25 10:28] LABS: Cannabinoid Screen,Urine Negative ng/ml (<50); Cocaine Screen,Urine Negative ng/ml (<300)
[2022-04-25 10:29] LABS: Methadone Screen,Urine Negative ng/ml (<300); Opiate Screen,Urine Negative ng/ml (<300)
[2022-04-25 10:30] LABS: Phencyclidine Screen,Urine Negative ng/ml (<25)
[2022-04-28 23:47] LABS: Opiates Negative (Cutoff=100)
== END ==
PROVIDERS: PCP Family Medicine; Visit Provider Nurse Practitioner Family
DX: Z79.891 Long term (current) use of opiate analgesic (principal)
CPT/HCPCS: 80305; 80361; 80365; G0480

== ENCOUNTER → 2022-05-25 08:42 | Outpatient (POV) | payer OTHER, SELFPAY ==
[2022-05-25 08:53] VITALS: BP 141/75; PULSE 93; RESP 18; O2SAT 97; BMI 28.8
--- NOTE | 2022-05-25 08:53 | A.OFFVIS_ITS ---
[facility] Pain Management SOAP Note Subjective:: This patient is a very pleasant 47-year-old female that comes to our clinic today for follow-up visit after insurance denied left sacroiliac joint injection. I examined the patient thoroughly today. She has extreme point tenderness over the left sacroiliac joint. She has difficulty transitioning from sitting to standing. Difficulty ambulating without left low lumbar and left buttock radicular pain. She rates her pain today 5/10. However, pain intensifies when sitting for any length of time and or ambulating for any length of time. She has positive Nathanael's test today. Positive Gaenslen's test today. Positive left sacroiliac joint compression test. Patient has tried and failed p hysical therapy. She remained on home exercise program following physical therapy with minimal relief. Patient is taking NSAIDs, muscle relaxer, acetaminophen with minimal relief. I discussed in detail with the patient again regarding left sacroiliac joint injection of cortisone. She wishes to proceed. Objective:: Patient is awake alert [place] x3. In no acute distress. Flexion-extension lumbar spine somewhat guarded secondary to pain on the left side. Deep tendon reflexes upper lower extremities normal. Motor strength upper lower extremities normal. There is no gross sensory deficit. Gait is normal. Assessment:: Left sacroiliitis. Plan:: I highly recommend a cortisone injection of the left sacroiliac joint. Patient will continue with diclofenac 75 mg 1 p.o. twice daily. Cyclobenzaprine 5 mg 1 p.o. nightly. We will schedule the left sacroiliac joint injection pending preauthorization from insurance. Professionally, I am not sure how this will resolve itself without an injection of cortisone in the sacroiliac joint. Patient has tried and failed all conservative therapies. This includes conservative medication. Her Raudel #[id number] has been reviewed and appropriate. [facility] Disclaimer: The information contained in this section may have been updated after the patient was seen, as this information can be updated by other users. Medical History Degenerative joint disease (DJD) of lumbar spine History of back pain Lumbar radiculopathy Post laminectomy syndrome Surgical History History of back surgery History of bilateral tubal ligation History of dilatation and curettage Family History Mother Family history of myocardial infarction Sister Family history of diabetes mellitus type II Social History (Updated 02/16/22 @ 13:22 by Juliann Lopez RN) Smoking Status: Never smoker alcohol intake: never substance use type: denies use current occupational status: disabled Travel in the last 8 weeks: None household members: significant other and children housing: house current occupation: [employer] caffeine: Yes
== END ==
PROVIDERS: PCP Family Medicine; Visit Provider Nurse Anesthetist, Certified Registered
DX: M46.1 Sacroiliitis, not elsewhere classified (principal)
CPT/HCPCS: 99212; G0463

== ENCOUNTER 2022-06-05 08:05 | Day surgery (SDC) | payer MEDICARE, SELFPAY ==
[2022-06-05 08:28] VITALS: BP 140/78; PULSE 89; RESP 18; TEMP 36.9; O2SAT 100; BMI 28.8
[2022-06-05 08:36] VITALS: BP 131/82; PULSE 87; RESP 18; O2SAT 98
[2022-06-05 08:38] VITALS: BP 131/82; PULSE 87; RESP 18; O2SAT 98
[2022-06-05 08:40] VITALS: BP 138/85; PULSE 83; RESP 18; O2SAT 100
--- NOTE | 2022-06-05 08:40 | P.PCN_ITS ---
Procedure Date: 06/05/22 Time: 08:35 Anesthesiologist:: Neeraj Shultz CRNA Complications:: None Pre-procedure Diagnosis:: Left sacroiliitis. Post-procedure Diagnosis:: Same. Indications for Procedure:: This patient is a pleasant 47-year-old who comes our clinic today for left sacroiliac joint injection. She has had this in the past with significant improvements. Today she has extreme point tenderness over the left sacroiliac joint. She complains of low lumbar left pain as well as left buttock pain. She rates her pain 7/10. Procedure Details:: Procedure: Left sacroiliac injection under fluoroscopy Informed consent was obtained and the risk and benefits of the procedure were explained to the patient.~ The patient was taken to the procedure room and noninvasive monitors were placed including noninvasive blood pressure cuff and p ulse oximeter.~ The patient was placed prone on the procedure table.~ The~ left hip was cleansed using Betadine as a cleansing solution.~ C-arm fluorosocpy was used to view the left SI joint.~ The skin and subcutaneous tissues were anesthetized using Lidocaine 1.5% and a 25-gauge needle.~ After this, a 22-gauge spinal needle was inserted under fluoroscopic guidance into the inferior aspect of the left SI joint.~ Omnipaque dye was injected and a good spread was seen throughout the joint.~ After this, approximately 5 mL of bupivacaine 0.25% and Depo-Medrol 40 mg was incrementally injected into the sacroiliac joint.~ The patient tolerated the procedure well with no complications.~ The patient was observed in the Pain Clinic for a period of 30-45 minutes, then discharged home neurologically intact.~ Plan and Disposition:: Patient was discharged without incident.
== END 2022-06-05 08:40 | disposition home or self-care (01) ==
PROVIDERS: PCP Family Medicine; Visit Provider Nurse Anesthetist, Certified Registered
DX: M46.1 Sacroiliitis, not elsewhere classified (principal)
CPT/HCPCS: 27096; G0260; J1040

== ENCOUNTER → 2022-06-08 12:26 | Outpatient (CLI) | payer MEDICARE, SELFPAY | PROVIDERS: PCP Family Medicine; Visit Provider Nurse Practitioner Family | DX: G47.33 Obstructive sleep apnea (adult) (pediatric) (principal) | CPT/HCPCS: G0399 ==

== ENCOUNTER → 2022-06-08 12:38 | Outpatient (CLI) | payer MEDICARE, SELFPAY ==
--- NOTE | 2022-06-08 12:38 | MR_ITS ---
FINAL REPORT TECHNIQUE: Multiplanar and multisequence imaging of the brain was obtained before and after contrast administration. CLINICAL HISTORY: eval mass, lesion in setting worsening OGDEN< abn exa headaches start at base of neck and goes up back of head FINDINGS: The gyri and sulci are within normal limits for age. There is no mass effect or midline shift. Signal intensity is normal. No hydrocephalus. The cerebellum and brainstem have a normal appearance. There are no areas of restricted diffusion on diffusion weighted images to suggest acute infarct. Soft tissues are without acute abnormality. No pathologic contrast enhancement is identified. IMPRESSION: No acute intracranial abnormality and no pathologic contrast enhancement. Reviewed, Interpreted and Dictated by Rachele Mcqueen MD Transcribed by Tiesha Rosales Authenticated and [facility]
--- NOTE | 2022-06-08 12:38 | MR_ITS ---
FINAL REPORT TECHNIQUE: Multiplanar and multisequence imaging of the cervical spine was obtained. CLINICAL HISTORY: neck pain, limited ROM, abn exam FINDINGS: There is straightening of the cervical lordosis which may be related to spasm or strain. The alignment is otherwise normal. Vertebral body height is preserved. Signal intensity within the substance of the spinal cord is normal. Bone marrow signal intensity is normal. Paraspinal soft tissues are within normal limits. C2/3: There is no focal disc herniation, central stenosis or neural foraminal narrowing. C3/4: There is no focal disc herniation, central stenosis or neural foraminal narrowing. C4/5: An annular disc bulge is present with degenerative endplate changes. There is mild left neural foraminal narrowing. C5/6: An annular disc bulge is present with superimposed right paracentral disc protrusion. There are degenerative endplate changes and facet osteoarthropathy. There is mild to moderate central stenosis. There is severe right and mild left neural foraminal narrowing. C6/7: An annular disc bulge is present with degenerative endplate changes and facet osteoarthropathy. C7/T1: There is no focal disc herniation, central stenosis or neural foraminal narrowing. IMPRESSION: Straightening of the lordosis, may be related to spasm or strain. Degenerative disc disease with right paracentral disc protrusion at C5-6. Reviewed, Interpreted and Dictated by Rachele Mcqueen MD Transcribed by Tiesha Rosales Authenticated and [facility]
== END ==
LOC: RAD 12:38
PROVIDERS: PCP Family Medicine; Visit Provider Nurse Practitioner Family
DX: M54.2 Cervicalgia (principal); R25.2 Cramp and spasm; R29.2 Abnormal reflex; R51.9 Headache, unspecified; G47.33 Obstructive sleep apnea (adult) (pediatric); R06.83 Snoring; G47.00 Insomnia, unspecified; R53.83 Other fatigue
CPT/HCPCS: 70553; 72141; 76376; A9576; G0399

== ENCOUNTER → 2022-06-18 08:56 | Outpatient (POV) | payer MEDICARE, SELFPAY ==
--- NOTE | 2022-06-18 09:04 | EXP.PAIN.SOA ---
[facility] Pain Management SOAP Note Subjective:: Patient is a pleasant 47-year-old female who presents today for left SI injection on 06/05/2022. We are currently treating the patient for degenerative disc disease of lumbar spine with lumbar radiculopathy symptoms, restless leg syndrome, left hip pain, postlaminectomy syndrome lumbar spine, greater trochanteric bursitis, sacroiliitis. Today she rates her pain a 6 out of 10. Patient denies any new trauma or injury. Patient denies any change location or type of pain she experiences. Patient states that this last SI injection provided approximately 40 to 50% relief however it only lasted 3 days. Patient states she does feel like she is back to her baseline at today's visit. Patient cannot tolerate prolonged sitting, standing, walking due to the pain. Patient states she has difficulty performing activities of daily living such as light cooking and cleaning or even unloading the teacher dramatics. Patient states she has to take frequent breaks. Patient also states that she did recently get sent to Dr. Cantu's office due to her chronic headache she has been experiencing. Patient states she has been over to see them and has started getting worked up however she does not know anything additionally at this time. Patient is currently managed with diclofenac 75 mg twice daily, ropinirole 0.25 mg at bedtime and cyclobenzaprine 5 mg at bedtime.? Patient denies any side effects from these medications. Patient states she does not need refills for another month on these medications. Patient is not on any scheduled medications. Her Raudel is [id number]. Its been reviewed and appropriate Review of Systems: General: No recent weight changes, no fever, no sleep disturbances Respiratory: No cough, no shortness of air, no recurring pulmonary infections Cardiovascular/peripheral vascular: No chest pain, no palpitations, no edema, no shortness of breath Gastrointestinal: No new onset incontinence, normal bowel movements reported Genitourinary: No new onset incontinence Musculoskeletal: Low back pain Psychiatric: [Normal mood/affect] Neurological: [Denies weakness in extremities], [denies balance issues] Objective:: Physical Exam: General: Alert and oriented x3, no acute distress, pleasant and cooperative Lungs: Respirations even and unlabored, symmetrical chest expansion Eyes: PERRL Musculoskeletal: Flexion and extension of lumbar [spine] somewhat guarded secondary to pain, [antalgic gait noted] extreme point tenderness along left SI and left bursa with positive left Nathanael's, Dianelys's, Gaenslen's, compression and distraction exam Neurological: Speech clear, no gross sensory deficit Assessment:: degenerative disc disease of lumbar spine with lumbar radiculopathy symptoms, restless leg syndrome, left hip pain, postlaminectomy syndrome lumbar spine, greater trochanteric bursitis, sacroiliitis Plan:: Patient is experiencing worsening pain in her low back along the left side with radiating symptoms into her left hip. Patient did have limited range of motion along with extreme point tenderness along her left SI and left bursa as well as a positive left Nathanael's, Dianelys's, Gaenslen's, compression and distraction exam. I have discussed with the patient that she may benefit from repeat left SI and left bursa injections. Prior to this last injection the previous injections provided 60% improvement for almost 3 months. We will schedule the patient for a left SI and left bursa injection. Patient has been instructed to contact the clinic with any concerns before the next appointment. Dr. Whiteside has reviewed this note and agrees with this plan of care. This note was dictated using voice recognition software and make contain errors or omissions. [facility] Disclaimer: The information contained in this section may have been updated after the patient was seen, as this information can be updated by other users. Medical History (Reviewed 01/11/22 @ 11:33
[2022-06-18 09:27] VITALS: BP 119/80; PULSE 90; RESP 18; O2SAT 98; BMI 28.8
== END ==
PROVIDERS: PCP Family Medicine; Visit Provider Nurse Practitioner Family
DX: M51.16 Intervertebral disc disorders with radiculopathy, lumbar region (principal); M46.1 Sacroiliitis, not elsewhere classified; M70.60 Trochanteric bursitis, unspecified hip; M96.1 Postlaminectomy syndrome, not elsewhere classified; G25.81 Restless legs syndrome; M25.552 Pain in left hip
CPT/HCPCS: 99212; G0463

== ENCOUNTER → 2022-07-16 11:10 | Outpatient (POV) | payer MEDICARE, SELFPAY ==
--- NOTE | 2022-07-16 11:17 | EXP.PAIN.SOA ---
[facility] Pain Management SOAP Note Subjective:: Patient is a pleasant 47-year-old female who presents today for follow-up.? We are currently treating the patient for degenerative disc disease of lumbar spine with lumbar radiculopathy symptoms, restless leg syndrome, left hip pain, postlaminectomy syndrome lumbar spine, greater trochanteric bursitis, sacroiliitis.? Today she rates her pain a 5 out of 10.? Patient denies any new trauma or injury.? Patient denies any change location or type of pain she experiences.? Since our last visit she did state that she has started physical therapy for her neck pain. She states that when she went to Dr. Cantu's office for her chronic headaches it was determined that she had disc issues in her cervical spine that were causing the symptoms. Patient states she has noticed some improvement with physical therapy. She also states that she was diagnosed with sleep apnea. Patient has been using her CPAP however she states that she is still trying to adjust to it due to feeling like she is suffocating. She has had previous SI injections that provided 50% relief however only lasting short-term. At our last visit we had discussed repeating SI and bursa injections however this was denied due to not having 75% relief from her last injection. Patient is currently managed with diclofenac 75 mg twice daily, ropinirole 0.25 mg at bedtime and cyclobenzaprine 5 mg at bedtime.? Patient denies any side effects from these medications.? Patient is not on any scheduled medications.? Her Raudel is [id number].? Its been reviewed and appropriate. Review of Systems: General: No recent weight changes, no fever, no sleep disturbances Respiratory: No cough, no shortness of air, no recurring pulmonary infections Cardiovascular/peripheral vascular: No chest pain, no palpitations, no edema, no shortness of breath Gastrointestinal: No new onset incontinence, normal bowel movements reported Genitourinary: No new onset incontinence Musculoskeletal: Low back pain, neck pain Psychiatric: [Normal mood/affect] Neurological: [Denies weakness in extremities], [denies balance issues] Objective:: Physical Exam: General: Alert and oriented x3, no acute distress, pleasant and cooperative Lungs: Respirations even and unlabored, symmetrical chest expansion Eyes: PERRL Musculoskeletal: Flexion and extension of cervical, lumbar [spine] somewhat guarded secondary to pain, [antalgic gait noted] Neurological: Speech clear, no gross sensory deficit Assessment:: Degenerative disc disease of lumbar spine with lumbar radiculopathy symptoms, restless leg syndrome, left hip pain, postlaminectomy syndrome lumbar spine, greater trochanteric bursitis, sacroiliitis neck pain with cervical radiculopathy symptoms Plan:: Patient continues to experience significant pain in her neck and low back however she is doing well with her current medication regimen. I will refill her diclofenac 75 mg twice a day, ropinirole 0.25 mg at bedtime and cyclobenzaprine 5 mg at bedtime and provide a 1 month supply of these medications. Patient will return to clinic in 1 month for reevaluation of symptoms and plan of care. Patient has been instructed to contact the clinic with any concerns before the next appointment. Dr. Whiteside has reviewed this note and agrees with this plan of care. This note was dictated using voice recognition software and make contain errors or omissions. [facility] Disclaimer: The information contained in this section may have been updated after the patient was seen, as this information can be updated by other users. Medical History Degenerative joint disease (DJD) of lumbar spine History of back pain Lumbar radiculopathy Post laminectomy syndrome Surgical History History of back surgery History of bilateral tubal ligation History of dilatation and curettage Family History
[2022-07-16 11:20] VITALS: BP 131/71; PULSE 93; RESP 18; O2SAT 98; BMI 28.8
== END | disposition home or self-care (01) ==
PROVIDERS: PCP Family Medicine; Visit Provider Nurse Practitioner Family
DX: M51.16 Intervertebral disc disorders with radiculopathy, lumbar region (principal); M96.1 Postlaminectomy syndrome, not elsewhere classified; M70.60 Trochanteric bursitis, unspecified hip; M25.552 Pain in left hip
CPT/HCPCS: 99212; G0463

== ENCOUNTER 2022-07-20 10:30 | Outpatient (RCR) | payer MEDICARE, SELFPAY ==
--- NOTE | 2022-06-22 11:15 | HMH.PTOPEV ---
PT Outpatient Evaluation Rehab PT Outpatient Evaluation Start: 06/22/22 10:55 Freq: Status: Active Protocol: Document 06/22/22 10:55 ROLA (Rec: 06/22/22 11:15 PHOАННА [id number]) E-signed By Leonel Damian, PT Outpatient Therapy Subjective History Subjective History This is the initial PT eval for Mel Flores 47 yowf who presents with c/o headaches and L side neck pain x ~ 3 mos with insidious onset of symptoms. She reports no c/o numbness or tingling in B UE. Pain is worse with cervical flexion and R side bending. She reporte relief for short term from ice and heat. She had MRI performed which shows C4/5, C 5/6 (worst), C6/7 disc bulges. She has PMH of Lumbar DDD, Lumbar lami x 2. Chief Complaint Pain,Stiff,Other Symptom Type Sharp,Other Symptoms Relieved By Heat,Ice Symptoms Aggravated By Physical Activity Prior Functional Limitations None Current Functional Limitations Reaching,Lifting,Housework Symptom Description Intermittent Level of pain today (0-10) 4 Pain scale - at its worst (0-10) 8 Cervical Eval Palpation Cervical Muscles L Cervical Paraspinal,L Upper Trapezius Cervical/Thoracic Palpation Findings Tenderness,Spasm Flexibility Deficits Upper Trapezius Muscle Length (L) Mild Tightness Levaetor Scapulae Muscle Length (L) Mild Tightness Passive Joint Mobility Cervical PIVM Dec: R C7/T1 L C7/T1 WNL: R OA L OA R AA L AA R C2/3 L C2/3 R C3/4 L C3/4 R C4/5 L C4/5 R C5/6 L C5/6 R C6/7 L C6/7 AROM Cervical Spine Extension Active Range of 0-30 Motion (degrees) Cervical Spine Flexion Active Range of 0-40 Motion (degrees) Cervical Spine Right Lateral Flexion 0-35 Active Range of Motion (degrees) Cervical Spine Left Lateral Flexion 0-40 Active Range
== END 2022-07-20 10:35 | disposition home or self-care (01) ==
LOC: PT 10:30
PROVIDERS: PCP Family Medicine; Visit Provider Nurse Practitioner Family
DX: G44.86 Cervicogenic headache (principal); M54.2 Cervicalgia; G89.29 Other chronic pain; R29.2 Abnormal reflex
CPT/HCPCS: 97010; 97012; 97014; 97035; 97110; 97140; 97163; G0283

== ENCOUNTER → 2022-08-13 12:10 | Outpatient (CLI) | payer MEDICARE, SELFPAY ==
--- NOTE | 2022-08-13 12:30 | XR_ITS ---
FINAL REPORT CLINICAL HISTORY: neck pain, abn exam COMPARISON: 04/07/2023 FINDINGS: Four views of the cervical spine were obtained with flexion and extension. There is no acute fracture or subluxation. Mild degenerative changes are seen at C5-6 with disc osteophyte complex. There is no significant neural foraminal narrowing or abnormal movement. IMPRESSION: No acute bony abnormality. No significant neural foraminal narrowing or abnormal movement with flexion or extension. Reviewed, Interpreted and Dictated by Hung Ludwig III, MD Transcribed by Jenn Lambert Authenticated and [facility]
[2022-08-13 14:14] LABS: Ferritin 8.41 ng/ml (6.24-137)
== END ==
PROVIDERS: PCP Family Medicine; Visit Provider Nurse Practitioner Family
DX: E83.10 Disorder of iron metabolism, unspecified (principal); M54.2 Cervicalgia; R25.2 Cramp and spasm; R29.2 Abnormal reflex; R51.9 Headache, unspecified
CPT/HCPCS: 36415; 72052; 82728

== ENCOUNTER → 2022-08-16 09:25 | Outpatient (POV) | payer MEDICARE, SELFPAY ==
[2022-08-16 09:34] VITALS: BP 124/76; PULSE 94; RESP 17; TEMP 36.4; O2SAT 100; BMI 29.2
--- NOTE | 2022-08-16 09:38 | EXP.PAIN.SOA ---
[facility] Pain Management SOAP Note Subjective:: Patient is a pleasant 47-year-old female who presents today for medication refill and follow-up. We are currently treating the patient for degenerative disc disease of lumbar spine with lumbar radiculopathy symptoms, sacroiliitis, greater trochanteric bursitis. Today she rates her pain a 4 out of 10. Patient denies any new trauma or injury. Patient denies any change to location or type of pain she experiences. Patient has just finished completing 4 weeks of physical therapy for her neck pain and does state that she did see some improvement. Patient does state that she continues to do the at home exercises that she was taught during PT. Patient did have her last SI injection denied due to lack of physical therapy and not getting more than 50% relief with the last injection. Patient was recently diagnosed with sleep apnea and is using the CPAP. She is currently managed with diclofenac 75 mg twice a day, ropinirole 0.25 mg at bedtime and cyclobenzaprine 5 mg at bedtime. Patient denies any side effects from this medication. Her Raudel is [id number]. Its been reviewed and appropriate. Review of Systems: General: No recent weight changes, no fever, no sleep disturbances Respiratory: No cough, no shortness of air, no recurring pulmonary infections Cardiovascular/peripheral vascular: No chest pain, no palpitations, no edema, no shortness of breath Gastrointestinal: No new onset incontinence, normal bowel movements reported Genitourinary: No new onset incontinence Musculoskeletal: Low back pain Psychiatric: [Normal mood/affect] Neurological: [Denies weakness in extremities], [denies balance issues] Objective:: Physical Exam: General: Alert and oriented x3, no acute distress, pleasant and cooperative Lungs: Respirations even and unlabored, symmetrical chest expansion Eyes: PERRL Musculoskeletal: Flexion and extension of lumbar [spine] somewhat guarded secondary to pain, [antalgic gait noted] Neurological: Speech clear, no gross sensory deficit Assessment:: Degenerative disc disease of lumbar spine with lumbar radiculopathy symptoms, sacroiliitis, greater trochanteric bursitis Plan:: Patient continues to have some pain and tenderness in her low back with limited range of motion. I will order the patient physical therapy for her low back pain. I will also refill her diclofenac 75 mg twice a day, ropinirole 0.25 mg at bedtime and cyclobenzaprine 5 mg at at bedtime and provide a 1 month supply of this medication. Patient will return to clinic in 1 month for reevaluation of symptoms and plan of care. Patient has been instructed to contact the clinic with any concerns before the next appointment. Dr. Whiteside has reviewed this note and agrees with this plan of care. This note was dictated using voice recognition software and make contain errors or omissions. [facility] Disclaimer: The information contained in this section may have been updated after the patient was seen, as this information can be updated by other users. Medical History Degenerative joint disease (DJD) of lumbar spine History of back pain Lumbar radiculopathy Post laminectomy syndrome Surgical History History of back surgery History of bilateral tubal ligation History of dilatation and curettage Family History Mother Family history of myocardial infarction Sister Family history of diabetes mellitus type II Social History Smoking Status: Never smoker alcohol intake: never substance use type: denies use current occupational status: other Travel in the last 8 weeks: None household members: significant other and children housing: house current occupation: [employer] caffeine: Yes
== END | disposition home or self-care (01) ==
PROVIDERS: PCP Family Medicine; Visit Provider Nurse Practitioner Family
DX: M51.16 Intervertebral disc disorders with radiculopathy, lumbar region (principal); M46.1 Sacroiliitis, not elsewhere classified; M70.60 Trochanteric bursitis, unspecified hip
CPT/HCPCS: 99212; G0463

== ENCOUNTER 2022-09-14 09:00 | Outpatient (RCR) | payer MEDICARE, SELFPAY ==
--- NOTE | 2022-08-23 10:40 | HMH.PTOPEV ---
PT Outpatient Evaluation Rehab PT Outpatient Evaluation Start: 08/23/22 10:28 Freq: Status: Active Protocol: Document 08/23/22 10:28 NOEMI (Rec: 08/23/22 10:40 NOEMI [id number]) E-signed By Delbert Saeed, PT Outpatient Therapy Subjective History Subjective History Patient is a 47 year old female presenting to outpatient PT with reports of chronic LBP with LLE radicular symptoms. Symptoms have progressively gotten worse over the past 2 months. Patient reports that she had been being seen in pain management for injections that were providing some relief, until insurance was denied. Special tests indicate L upslip of the innominant. Relief noted of radicular symptoms with extension protocol and traction. Comorbidities include hx of LS discectomy (obs indicate L3/4 ) and hx of CS pain. Chief Complaint Pain,Spasms,Stiff,Paresthesia Symptom Type Sharp,Numbness,Tingling Symptoms Relieved By Rest/Positioning,Heat,Ice, Prescription Meds Symptoms Aggravated By Sitting,Standing,Bending/ Stooping,Physical Activity, Walking,Lifting Prior Functional Limitations None Current Functional Limitations Lifting,Housework,Sleeping, Standing,Sitting,Walking, Bending/Stooping Symptom Description Constant but Variable Level of pain today (0-10) 3 Pain scale - at its best (0-10) 1 Pain scale - at its worst (0-10) 6 Lumbopelvic Eval Posture Thoracic Spine Posture Standing Position Increased Kyphosis Lumbar Spine Posture Standing Position Increased Lordosis Assistive device Assistive Devices None / NA Palapation tenderness left lumbar spinal tenderness Yes: L 3/4 2/4 Lumbar/Sacral Palpation Overall Comment L QL 2/4 Accessory Movement L3 left L4 left L5 left Range of Motion Lumbar Spine Active Flexion Range of 42 inc radic Motion (degrees) Lumbar Spine Active Extension Range of 11 in pain Motion (degrees) Left Lumbar Spine Lateral Flexion Active 11 Range of Motion (degrees) Right Lumbar Spine Lateral Fl
== END 2022-09-14 09:05 | disposition home or self-care (01) ==
LOC: PT 09:00
PROVIDERS: PCP Family Medicine; Visit Provider Nurse Practitioner Family
DX: M54.50 Low back pain, unspecified (principal)
CPT/HCPCS: 97010; 97012; 97014; 97110; 97163; G0283

== ENCOUNTER → 2022-10-08 09:09 | Outpatient (POV) | payer MEDICARE, SELFPAY ==
--- NOTE | 2022-10-08 09:19 | EXP.PAIN.SOA ---
[facility] Pain Management SOAP Note Subjective:: Patient is a pleasant 47-year-old female who presents today for medication refill and follow-up. We are currently treating the patient for degenerative disc disease of cervical and lumbar spine with cervical and lumbar radiculopathy symptoms, sacroiliitis, greater trochanteric bursitis. Today she rates her pain a 3 out of 10. Patient has completed her physical therapy and states that her back is doing much better. Today she states her pain is more related to her neck. Patient states this is an aching, throbbing sensation that is worse with increased activity and does radiate into her upper extremities and head. Patient states that she has gone to Dr. Cantu who prescribed her a new medication and it is helping some. Patient does state the pain in her neck does interfere with her ability perform activities of daily living such as cooking and cleaning. Patient has had previous lower back injections that did provide significant relief. Patient is interested in possibly doing injections for her neck. She is currently managed with diclofenac 75 mg twice a day, ropinirole 0.25 mg at bedtime and cyclobenzaprine 5 mg at bedtime. She denies any side effects from these medications and is requesting refills. Patient does use a CPAP for her sleep apnea. Her Raudel is [id number]. Its been reviewed and appropriate. Review of Systems: General: No recent weight changes, no fever, no sleep disturbances Respiratory: No cough, no shortness of air, no recurring pulmonary infections Cardiovascular/peripheral vascular: No chest pain, no palpitations, no edema, no shortness of breath Gastrointestinal: No new onset incontinence, normal bowel movements reported Genitourinary: No new onset incontinence Musculoskeletal: Neck pain, arm pain Psychiatric: [Normal mood/affect] Neurological: [Denies weakness in extremities], [denies balance issues] Objective:: Physical Exam: General: Alert and oriented x3, no acute distress, pleasant and cooperative Lungs: Respirations even and unlabored, symmetrical chest expansion Eyes: PERRL Musculoskeletal: Flexion and extension of cervical [spine] somewhat guarded secondary to pain, [antalgic gait noted] Neurological: Speech clear, no gross sensory deficit FINDINGS: There is straightening of the cervical lordosis which may be related to spasm or strain.? The alignment is otherwise normal. Vertebral body height is preserved.? Signal intensity within the substance of the spinal cord is normal.? Bone marrow signal intensity is normal.? Paraspinal soft tissues are within normal limits.? C2/3:? There is no focal disc herniation, central stenosis or neural foraminal narrowing.? C3/4:? There is no focal disc herniation, central stenosis or neural foraminal narrowing.? C4/5:? An annular disc bulge is present with degenerative endplate changes.? There is mild left neural foraminal narrowing.? C5/6:? An annular disc bulge is present with superimposed right paracentral disc protrusion.? There are degenerative endplate changes and facet osteoarthropathy.? There is mild to moderate central stenosis.? There is severe right and mild left neural foraminal narrowing.? C6/7:? An annular disc bulge is present with degenerative endplate changes and facet osteoarthropathy.? C7/T1:? There is no focal disc herniation, central stenosis or neural foraminal narrowing. IMPRESSION: Straightening of the lordosis, may be related to spasm or strain.? Degenerative disc disease with right paracentral disc protrusion at C5-6. Reviewed, Interpreted and Dictated by Rachele Mcqueen MD Transcribed by Tiesha Rosales Authenticated and ERN CAMDEN Assessment:: Degenerative disc disease of cervical and lumbar spine with cervical and lumbar radiculopathy symptoms, sacroiliitis, greater trochanteric bursitis Plan:: Patient is experiencing significant pain in her ne
[2022-10-08 09:28] VITALS: BP 131/74; PULSE 86; RESP 18; O2SAT 98; BMI 29.0
== END | disposition home or self-care (01) ==
PROVIDERS: PCP Family Medicine; Visit Provider Nurse Practitioner Family
DX: M50.10 Cervical disc disorder with radiculopathy, unspecified cervical region (principal); M51.16 Intervertebral disc disorders with radiculopathy, lumbar region; M46.1 Sacroiliitis, not elsewhere classified; M70.60 Trochanteric bursitis, unspecified hip
CPT/HCPCS: 99212; G0463

== ENCOUNTER → 2022-10-08 09:23 | Outpatient (CLI) | payer MEDICARE, SELFPAY ==
[2022-10-08 10:07] LABS: Basophils % 0.4 % (0.1-2.0); Eosinophils # 0.1 K/mm3 (0.0-0.4); Eosinophils % 2.4 % (0.1-12.0); Hematocrit 40.8 % (37.0-47.0); Hemoglobin 13.1 g/dL (12.2-16.2); Lymphocytes # 1.1 K/mm3 (0.7-4.5); Lymphocytes % 23.5 % (10-50); Mean Corpuscular Hemoglobin 28.5 pg (27.0-31.2); Monocytes # 0.4 K/mm3 (0.1-1.0); Monocytes % 7.4 % (1.7-9.3); Neutrophils # 3.2 K/mm3 (1.8-7.8); Neutrophils % 66.4 % (37.0-80.0); Platelet Count 228 K/mm3 (142-424); Red Blood Count 4.58 M/mm3 (4.20-5.40); Red Cell Distribution Width 13.7 % (11.5-17.5); White Blood Count 4.8 K/mm3 (4.8-10.8)
[2022-10-08 10:48] LABS: Alanine Aminotransferase 24 U/L (12-78); Albumin Level 4.1 g/dl (3.5-5.0); Albumin/Globulin Ratio 1.3 (1.1-1.8); Alkaline Phosphatase 68 U/L (38-126); Aspartate Amino Transferase 28 U/L (14-36); Bilirubin,Total 0.4 mg/dl (0.2-1.3); Blood Urea Nitrogen 11 mg/dl (7-17); Calcium 8.9 mg/dl (8.4-10.2); Carbon Dioxide 25 mmol/L (22.0-30.0); Chloride 105 mmol/L (98-107); Estimated Glomerular Filt Rate 108 ml/min (>60); GFR (African American) 130 ML/MIN (>60); Globulin 3.1 g/dL (1.3-3.2); Glucose 93 mg/dl (74-100); Sodium 140 mmol/L (136-145); Total Protein,Serum 7.2 g/dl (6.3-8.2)
[2022-10-08 11:25] LABS: Iron 56 ug/dL (37-170)
[2022-10-08 11:34] LABS: Total Iron Binding Capacity 354 ug/dL (265-497)
[2022-10-08 11:54] LABS: Vitamin B12 630 pg/mL (239-931)
== END ==
PROVIDERS: PCP Family Medicine; Visit Provider Nurse Practitioner Family
DX: G89.29 Other chronic pain (principal); R51.9 Headache, unspecified; R25.2 Cramp and spasm; E83.10 Disorder of iron metabolism, unspecified
CPT/HCPCS: 36415; 80053; 82607; 82746; 83540; 83550; 84443; 85025; 99212; G0463

== ENCOUNTER 2022-10-16 08:03 | Day surgery (SDC) | payer MEDICARE, SELFPAY ==
[2022-10-16 08:15] VITALS: BP 133/70; PULSE 95; RESP 18; TEMP 36.5; O2SAT 100; BMI 29.0
[2022-10-16 08:37] VITALS: BP 159/75; PULSE 91; RESP 18; O2SAT 98
[2022-10-16 08:38] VITALS: BP 159/75; PULSE 91; RESP 18; O2SAT 98
[2022-10-16 08:40] VITALS: BP 131/53; PULSE 94; RESP 18; TEMP 36.5; O2SAT 100
--- NOTE | 2022-10-16 08:41 | P.PCN_ITS ---
Procedure Date: 10/16/22 Time: 08:30 Anesthesiologist:: Neeraj Shultz CRNA Complications:: None Pre-procedure Diagnosis:: Degenerative disc cervical spine multilevels. Cervical radiculopathy. Post-procedure Diagnosis:: Same. Indications for Procedure:: Patient is a very pleasant 47-year-old female comes our clinic today for cervical epidural steroid injection. Patient complaining of headaches, posterior neck pain, bilateral arm radicular symptoms at times. She rates her pain 7/10. Procedure Details:: Procedure:Cervical epidural steroid injection Informed consent was obtained and the risks and benefits of the procedure were explained to the patient. The patient was taken to the procedure room and noninvasive monitors placed, including noninvasive blood pressure cuff and pulse oximeter. The neck was prepped using Chloraprep as a cleansing solution. The C6- C7 interspace was viewed using fluroscopy. The skin and subcutaneous tissues were anesthetized using lidocaine 1.5% and a 25-gauge needle. After this an 18- gauge Touhy epidural needle was placed into the C6-C7 interspace under fluroscopy guidance and advanced using loss of resistance to air until the epidural space was encountered. After confirmation of needle placement in the epidural space using contrast dye, a solution containing normal saline, 2 mL and Depo-Medrol 80 mg was incrementally injected into the cervical epidural space.~ The patient tolerated the procedure well with no complications. The patient was observed in the Pain Clinic and then discharged home neurologically intact. Plan and Disposition:: Patient was discharged without incident.
== END 2022-10-16 08:40 | disposition home or self-care (01) ==
PROVIDERS: PCP Family Medicine; Visit Provider Nurse Anesthetist, Certified Registered
DX: M50.10 Cervical disc disorder with radiculopathy, unspecified cervical region (principal); R51.9 Headache, unspecified
CPT/HCPCS: 62321; J1040; Q9966

== ENCOUNTER → 2022-10-31 09:09 | Outpatient (POV) | payer MEDICARE, SELFPAY ==
[2022-10-31 09:34] VITALS: BP 129/74; PULSE 89; RESP 18; O2SAT 97; BMI 29.2
--- NOTE | 2022-10-31 09:36 | EXP.PAIN.SOA ---
[facility] Pain Management SOAP Note Subjective:: Patient is a pleasant 47-year-old female who presents today for follow-up of cervical epidural steroid injection C6-C7 on 10/16/2022. We are currently treating the patient for degenerative disc disease of cervical and lumbar spine with cervical and lumbar radiculopathy symptoms, sacroiliitis, greater trochanteric bursitis, restless leg syndrome. Today she states she has had at least 70% improvement following this injection and feels like it is still continuing to provide additional relief. Patient states she has been able to increase her activity with decreased pain symptoms and feels more functional on a day-to-day basis. Patient is currently managed with diclofenac 75 mg twice a day, ropinirole 0.25 mg at bedtime and cyclobenzaprine 5 mg at bedtime. She denies any side effects from these medications. She does state that Dr. Cantu's office did recently increase her amitriptyline and that she has been experiencing more leg cramping in the middle of the night. Her Raudel is [id number]. Its been reviewed and appropriate. Review of Systems: General: No recent weight changes, no fever, no sleep disturbances Respiratory: No cough, no shortness of air, no recurring pulmonary infections Cardiovascular/peripheral vascular: No chest pain, no palpitations, no edema, no shortness of breath Gastrointestinal: No new onset incontinence, normal bowel movements reported Genitourinary: No new onset incontinence Musculoskeletal: Leg cramping, low back pain Psychiatric: [Normal mood/affect] Neurological: [Denies weakness in extremities], [denies balance issues] Objective:: Physical Exam: General: Alert and oriented x3, no acute distress, pleasant and cooperative Lungs: Respirations even and unlabored, symmetrical chest expansion Eyes: PERRL Musculoskeletal: Flexion and extension of lumbar [spine] somewhat guarded secondary to pain, [antalgic gait noted] Neurological: Speech clear, no gross sensory deficit Assessment:: Degenerative disc disease of cervical and lumbar spine with cervical and lumbar radiculopathy symptoms, sacroiliitis, greater trochanteric bursitis, restless leg syndrome Plan:: Patient has had significant improvement of her neck symptoms following her cervical epidural and does not require any additional injective therapy at this time. I will refill the patient's cyclobenzaprine 5 mg at bedtime, diclofenac 75 mg twice a day and increase her ropinirole to 0.5 mg at bedtime and provide a 1 month supply of all of these medications. Patient will return to clinic in 1 month for reevaluation of symptoms and medication refill. Patient has been instructed to contact the clinic with any concerns before the next appointment. Dr. Whiteside has reviewed this note and agrees with this plan of care. This note was dictated using voice recognition software and make contain errors or omissions. [facility] Disclaimer: The information contained in this section may have been updated after the patient was seen, as this information can be updated by other users. Medical History Degenerative joint disease (DJD) of lumbar spine History of back pain Lumbar radiculopathy Post laminectomy syndrome Surgical History History of back surgery History of bilateral tubal ligation History of dilatation and curettage Family History Mother Family history of myocardial infarction Sister Family history of diabetes mellitus type II Social History Smoking Status: Never smoker alcohol intake: never substance use type: denies use current occupational status: unemployed Travel in the last 8 weeks: None household members: significant other and children housing: house current occupation: [employer] caffeine: Yes
== END | disposition home or self-care (01) ==
PROVIDERS: PCP Family Medicine; Visit Provider Nurse Practitioner Family
DX: M50.10 Cervical disc disorder with radiculopathy, unspecified cervical region (principal); M51.16 Intervertebral disc disorders with radiculopathy, lumbar region; M46.1 Sacroiliitis, not elsewhere classified; M70.60 Trochanteric bursitis, unspecified hip; G25.81 Restless legs syndrome
CPT/HCPCS: 99212; G0463

== ENCOUNTER → 2022-12-10 08:36 | Outpatient (POV) | payer MEDICARE, SELFPAY ==
[2022-12-10 08:46] VITALS: BP 134/88; PULSE 89; RESP 18; O2SAT 97; BMI 28.9
--- NOTE | 2022-12-10 08:59 | EXP.PAIN.SOA ---
[facility] Pain Management SOAP Note Subjective:: Patient is a pleasant 47-year-old female who presents today for follow-up. We are currently treating the patient for degenerative disc disease of cervical and lumbar spine with cervical and lumbar radiculopathy symptoms, sacroiliitis, greater trochanteric bursitis, restless leg syndrome. Today she rates her pain a 4 out of 10. Patient denies any new trauma or injury. She denies any change location or type of pain she experiences. She does state that today it is more of her low back that is been bothering her. She does describe this as an aching, throbbing sensation that is worse with increased activity. She does state that the pain does interfere with her ability perform activities of daily living such as cooking or cleaning. She is currently managed with diclofenac 75 mg twice a day, ropinirole 0.5 mg at bedtime and cyclobenzaprine 5 mg at bedtime. Patient denies any side effects from this medications. She is also on amitriptyline from an outside provider. Her Raudel is [id number]. Its been reviewed and appropriate. Review of Systems: General: No recent weight changes, no fever, no sleep disturbances Respiratory: No cough, no shortness of air, no recurring pulmonary infections Cardiovascular/peripheral vascular: No chest pain, no palpitations, no edema, no shortness of breath Gastrointestinal: No new onset incontinence, normal bowel movements reported Genitourinary: No new onset incontinence Musculoskeletal: Low back pain, bilateral leg pain Psychiatric: [Normal mood/affect] Neurological: [Denies weakness in extremities], [denies balance issues] Objective:: Physical Exam: General: Alert and oriented x3, no acute distress, pleasant and cooperative Lungs: Respirations even and unlabored, symmetrical chest expansion Eyes: PERRL Musculoskeletal: Flexion and extension of lumbar [spine] somewhat guarded secondary to pain, [antalgic gait noted] Neurological: Speech clear, no gross sensory deficit Assessment:: Degenerative disc disease of cervical and lumbar spine with cervical and lumbar radiculopathy symptoms, sacroiliitis, greater trochanteric bursitis Plan:: Patient is experiencing worsening pain in her low back with lumbar radiculopathy into her bilateral legs. Patient had limited range of motion of her lumbar spine during today's visit. I have counseled the patient that she may benefit from a lumbar epidural steroid injection. Risk and benefits were explained to the patient and at this time she would like to wait. Patient is not on any blood thinners. I have counseled the patient that she can call to schedule this injection if she decides to at a later date. Patient will be scheduled for a LESI L4-L5. I will refill the patient's diclofenac 75 mg twice a day, ropinirole 0.5 mg at bedtime and cyclobenzaprine 5 mg at bedtime and provide a 1 month supply of these medications. Patient will return to clinic in 1 month for reevaluation of symptoms and plan of care. Patient has been instructed to contact the clinic with any concerns before the next appointment. Dr. Whiteside has reviewed this note and agrees with this plan of care. This note was dictated using voice recognition software and make contain errors or omissions. [facility] Disclaimer: The information contained in this section may have been updated after the patient was seen, as this information can be updated by other users. Medical History Degenerative joint disease (DJD) of lumbar spine History of back pain Lumbar radiculopathy Post laminectomy syndrome Surgical History History of back surgery History of bilateral tubal ligation History of dilatation and curettage Family History Mother Family history of myocardial infarction Sister Family history of diabetes mellitus type II
== END | disposition home or self-care (01) ==
PROVIDERS: PCP Family Medicine; Visit Provider Nurse Practitioner Family
DX: M50.10 Cervical disc disorder with radiculopathy, unspecified cervical region (principal); M51.16 Intervertebral disc disorders with radiculopathy, lumbar region; M46.1 Sacroiliitis, not elsewhere classified; M70.60 Trochanteric bursitis, unspecified hip; G25.81 Restless legs syndrome
CPT/HCPCS: 99212; G0463

== ENCOUNTER → 2023-01-18 08:36 | Outpatient (POV) | payer MEDICARE, SELFPAY ==
[2023-01-18 08:57] VITALS: BP 142/94; PULSE 87; RESP 20; BMI 28.1
--- NOTE | 2023-01-18 11:07 | A.OFFVIS_ITS ---
[facility] Pain Management SOAP Note Subjective:: This patient is a very pleasant 47-year-old female that comes our clinic today with complaint of left buttock pain. Left anterior thigh pain. Left posterior hip pain. Left low lumbar back pain. Patient received lumbar epidural steroid injection on 12/12/2022. She reports 50% improvement terms of her overall low back pain. However, the left-sided symptoms are continuing. Upon examination she has extreme point tenderness over the left sacroiliac joint. She has positive Nathanael's test on the left. Positive Gaenslen's test on the left. Positive left SI joint compression test. I discussed with the patient regarding left sacroiliac joint injection of cortisone. She wishes to proceed. Patient had left sacroiliac joint injection in the past with significant improvement (greater than 80%)lasting 6 months. Patient's Raudel #[id number] has been reviewed and appropriate. Patient has tried and failed conservative measures such as physical therapy, home exercise program, NSAIDs, acetaminophen Objective:: Patient is awake alert [place] x3. No acute distress. Flexion-extension lumbar spine somewhat guarded secondary to pain. Deep tendon reflexes upper and lower extremities normal. Motor strength upper and lower extremity normal. There is no gross sensory deficit. Gait is normal. Assessment:: Degenerative disc lumbar spine multilevels. Lumbar radiculopathy. Left sacroiliitis Plan:: Discussed in detail with the patient regarding left sacroiliac joint injection. Answered questions. She wishes to proceed. [facility] Disclaimer: The information contained in this section may have been updated after the patient was seen, as this information can be updated by other users. Medical History Degenerative joint disease (DJD) of lumbar spine History of back pain Lumbar radiculopathy Post laminectomy syndrome Surgical History History of back surgery History of bilateral tubal ligation History of dilatation and curettage Family History Mother Family history of myocardial infarction Sister Family history of diabetes mellitus type II Social History Smoking Status: Never smoker alcohol intake: never substance use type: denies use current occupational status: other Travel in the last 8 weeks: None household members: significant other and children housing: house current occupation: [employer] caffeine: Yes
== END ==
PROVIDERS: PCP Family Medicine; Visit Provider Nurse Anesthetist, Certified Registered
DX: M51.16 Intervertebral disc disorders with radiculopathy, lumbar region (principal); M46.1 Sacroiliitis, not elsewhere classified
CPT/HCPCS: 99212; G0463

== ENCOUNTER 2023-02-12 08:06 | Day surgery (SDC) | payer MEDICARE, SELFPAY ==
[2023-02-12 08:21] VITALS: BP 123/86; PULSE 87; RESP 16; TEMP 36.6; O2SAT 98; BMI 29.5
[2023-02-12 08:37] VITALS: BP 144/94; PULSE 82; RESP 18; O2SAT 98
[2023-02-12 08:42] VITALS: BP 155/83; PULSE 84; RESP 18; O2SAT 97
[2023-02-12 08:43] VITALS: BP 155/83; PULSE 84; RESP 18; O2SAT 97
--- NOTE | 2023-02-12 09:12 | EXP.PAIN.PRO ---
Procedure Date: 02/12/23 Time: 08:25 Anesthesiologist:: Neeraj Shultz CRNA Complications:: None Pre-procedure Diagnosis:: Left sacroiliitis Post-procedure Diagnosis:: Same Indications for Procedure:: Patient is a very pleasant 47-year-old female that comes our clinic today for repeat left sacroiliac joint injection. She has had significant improvement terms of her overall left posterior hip pain including left low lumbar back pain with previous injections of the SI joint. She rates her pain today 6/10. Patient reports having difficulty transitioning from sitting to standing. Difficulty with ambulation secondary to low lumbar left back pain as well as left posterior hip pain. Procedure Details:: Procedure: Left sacroiliac injection under fluoroscopy Informed consent was obtained and the risk and benefits of the procedure were explained to the patient.~ The patient was taken to the procedure room and noninvasive monitors were placed including noninvasive blood pressure cuff and pulse oximeter.~ The patient was placed prone on the procedure table.~ The~ left hip was cleansed using Betadine as a cleansing solution.~ C-arm fluorosocpy was used to view the left SI joint.~ The skin and subcutaneous tissues were anesthetized using Lidocaine 1.5% and a 25-gauge needle.~ After this, a 22-gauge spinal needle was inserted under fluoroscopic guidance into the inferior aspect of the left SI joint.~ Omnipaque dye was injected and a good spread was seen throughout the joint.~ After this, approximately 5 mL of bupivacaine 0.25% and Depo-Medrol 40 mg was incrementally injected into the sacroiliac joint.~ The patient tolerated the procedure well with no complications.~ The patient was observed in the Pain Clinic for a period of 30-45 minutes, then discharged home neurologically intact.~ Plan and Disposition:: Patient was discharged without incident.
== END 2023-02-12 08:37 | disposition home or self-care (01) ==
PROVIDERS: PCP Family Medicine; Visit Provider Nurse Anesthetist, Certified Registered
DX: M46.1 Sacroiliitis, not elsewhere classified (principal)
CPT/HCPCS: 27096; G0260; J1040

== ENCOUNTER → 2023-03-11 09:03 | Outpatient (POV) | payer MEDICARE, SELFPAY ==
--- NOTE | 2023-03-11 09:11 | EXP.PAIN.SOA ---
[facility] Pain Management SOAP Note Subjective:: Patient is a pleasant 48-year-old female who presents today for follow-up of left SI injection on 02/12/2023. We are currently treating the patient for degenerative disc disease of cervical and lumbar spine with cervical and lumbar radiculopathy symptoms, sacroiliitis, greater trochanteric bursitis, restless leg syndrome. Today she rates her pain a 4 out of 10. Patient denies any new trauma or injury. She does state that she has had approximately 60% improvement following the SI injection. She states she has been able to increase her activity with decreased pain symptoms. She does however state that she continues to have more prominent left leg pain that goes from her low back all the way down to her foot. Patient states that frequently when she goes on trips just even to [place] that she will have worsening pain down this entire extremity and even swelling into her foot. She does state the pain will interfere with her ability perform activities of daily living such as cooking or cleaning. She is currently managed with diclofenac 75 mg twice a day, ropinirole 0.5 mg at bedtime and cyclobenzaprine 5 mg at bedtime. Patient denies any side effects from this medications. She is also on amitriptyline from an outside provider. Her Raudel has been reviewed and appropriate. Review of Systems: General: No recent weight changes, no fever, no sleep disturbances Respiratory: No cough, no shortness of air, no recurring pulmonary infections Cardiovascular/peripheral vascular: No chest pain, no palpitations, no edema, no shortness of breath Gastrointestinal: No new onset incontinence, normal bowel movements reported Genitourinary: No new onset incontinence Musculoskeletal: Low back pain, left leg pain Psychiatric: [Normal mood/affect] Neurological: [Denies weakness in extremities], [denies balance issues] Objective:: Physical Exam: General: Alert and oriented x3, no acute distress, pleasant and cooperative Lungs: Respirations even and unlabored, symmetrical chest expansion Eyes: PERRL Musculoskeletal: Flexion and extension of lumbar [spine] somewhat guarded secondary to pain, [antalgic gait noted] positive left leg raise Neurological: Speech clear, no gross sensory deficit Assessment:: Degenerative disc disease of cervical and lumbar spine with cervical and lumbar radiculopathy symptoms, sacroiliitis, greater trochanteric bursitis, restless leg syndrome Plan:: I will refill the patient's diclofenac 75 mg twice a day, ropinirole 0.5 mg at bedtime and cyclobenzaprine 5 mg at bedtime and provide a 2-month supply of these medications. I have discussed with the patient in future if she continues to have worsening left leg pain with a positive leg raise that she may benefit from a transforaminal epidural. We will discuss this at future visits. Patient will return to clinic in 1 month for reevaluation of symptoms and plan of care. Patient has been instructed to contact the clinic with any concerns before the next appointment. Dr. Whiteside has reviewed this note and agrees with this plan of care. This note was dictated using voice recognition software and make contain errors or omissions. [facility] Disclaimer: The information contained in this section may have been updated after the patient was seen, as this information can be updated by other users. Medical History Degenerative joint disease (DJD) of lumbar spine History of back pain Lumbar radiculopathy Post laminectomy syndrome Surgical History History of back surgery History of bilateral tubal ligation History of dilatation and curettage Family History Mother Family history of myocardial infarction Sister Family history of diabetes mellitus type II Social History (Reviewed 02/12/23 @ 08:21 by Mary Moralez
[2023-03-11 09:12] VITALS: BP 171/69; PULSE 88; RESP 18; O2SAT 95; BMI 29.0
== END | disposition home or self-care (01) ==
PROVIDERS: PCP Family Medicine; Visit Provider Nurse Practitioner Family
DX: M51.16 Intervertebral disc disorders with radiculopathy, lumbar region (principal); M50.10 Cervical disc disorder with radiculopathy, unspecified cervical region; M46.1 Sacroiliitis, not elsewhere classified; M70.60 Trochanteric bursitis, unspecified hip; G25.81 Restless legs syndrome
CPT/HCPCS: 99212; G0463

== ENCOUNTER → 2023-04-29 08:25 | Outpatient (POV) | payer MEDICARE, SELFPAY ==
[2023-04-29 09:06] VITALS: BP 139/80; PULSE 89; RESP 18; O2SAT 99; BMI 29.2
--- NOTE | 2023-04-29 09:21 | A.OFFVIS_ITS ---
[facility] Pain Management SOAP Note Subjective:: Patient is a pleasant 48-year-old female who presents today for follow-up. We are currently treating the patient for degenerative disc disease of cervical and lumbar spine with cervical and lumbar radiculopathy symptoms, sacroiliitis, greater trochanteric bursitis, restless leg syndrome. Today she rates her pain a 5 out of 10. Patient denies any new trauma or injury. She does states she is experiencing worsening pain in her neck with more severe symptoms going down her right arm and hand. Patient states this is a aching, throbbing sensation with numbness and tingling into the extremity. Patient does state that she has some in the left but not nearly as bad as the right. Patient does state the pain interferes with her ability perform activities of daily living such as cooking and cleaning. Patient is interested in injection therapy. Patient is currently managed with diclofenac 75 mg twice a day, ropinirole 0.5 mg at bedtime and cyclobenzaprine 5 mg at bedtime. She denies any side effects from these medications. Patient states she is not sure if she needs any refills at this time. Her Raudel has been reviewed and is appropriate. Review of Systems: General: No recent weight changes, no fever, no sleep disturbances Respiratory: No cough, no shortness of air, no recurring pulmonary infections Cardiovascular/peripheral vascular: No chest pain, no palpitations, no edema, no shortness of breath Gastrointestinal: No new onset incontinence, normal bowel movements reported Genitourinary: No new onset incontinence Musculoskeletal: Neck pain, bilateral arm pain/numbness, severe right hand numbness Psychiatric: [Normal mood/affect] Neurological: [Denies weakness in extremities], [denies balance issues] Objective:: Physical Exam: General: Alert and oriented x3, no acute distress, pleasant and cooperative Lungs: Respirations even and unlabored, symmetrical chest expansion Eyes: PERRL Musculoskeletal: Flexion and extension of cervical [spine] somewhat guarded secondary to pain, [antalgic gait noted] Neurological: Speech clear, no gross sensory deficit Assessment:: degenerative disc disease of cervical and lumbar spine with cervical and lumbar radiculopathy symptoms, sacroiliitis, greater trochanteric bursitis, restless leg syndrome Plan:: Patient is experiencing worsening pain in her neck and upper extremities with more severe numbness along the right arm. I have discussed with the patient that she may benefit from a cervical epidural steroid injection. Risk and benefits were discussed with the patient and she would like to proceed forward with this plan of care. Patient did previously have a cervical epidural back in September that did provide 70% improvement lasting several months. During that time the patient felt like she was more functional and able to do more activities. We will schedule the patient for a KEY C5-C6. Patient is not on any blood thinners. I have counseled the patient to contact our office if she does need additional refills between now and her next visit. All epidurals are done under fluoroscopic guidance to confirm placement. Patient has been counseled to contact our office with any questions or concerns before their next appointment date. This note has been dictated using voice recognition software and may contain errors or omissions. Dr. Whiteside has read this note and agrees with this plan of care. [facility] Disclaimer: The information contained in this section may have been updated after the patient was seen, as this information can be updated by other users. Medical History Degenerative joint disease (DJD) of lumbar spine History of back pain Lumbar radiculopathy Post laminectomy syndrome Surgical History History of back surgery History of bilateral tubal ligation History of dilatation and curettage Family History Mother Family history of myocardial infarction Sister Family history of diabetes mellitus type II Social History Smoking Status: Never smoker alcohol intake: never substance use type: denies use current occupational status: other Travel in the last 8 weeks: None household members: significant other and children housing: house current occupation: [employer] caffeine: Yes
== END ==
LOC: SC.PAIN 08:25
PROVIDERS: PCP Family Medicine; Visit Provider Nurse Practitioner Family
DX: M50.122 Cervical disc disorder at C5-C6 level with radiculopathy (principal); M51.16 Intervertebral disc disorders with radiculopathy, lumbar region; M46.1 Sacroiliitis, not elsewhere classified; M70.60 Trochanteric bursitis, unspecified hip; G25.81 Restless legs syndrome
CPT/HCPCS: 99212; G0463

== ENCOUNTER 2023-05-14 07:57 | Day surgery (SDC) | payer MEDICARE, SELFPAY ==
[2023-05-14 08:26] VITALS: BP 167/85; PULSE 94; RESP 16; TEMP 36.7; O2SAT 99; BMI 29.2
[2023-05-14] MEDS: methylPREDNISolone ACETATE 80MG/ML VIAL 80 MG (08:38)
[2023-05-14 08:39] VITALS: BP 127/57; PULSE 88; RESP 18; O2SAT 100
[2023-05-14 08:41] VITALS: BP 127/57; PULSE 87; RESP 18; O2SAT 100
[2023-05-14 08:43] VITALS: BP 152/62; PULSE 84; RESP 16; O2SAT 99
--- NOTE | 2023-05-14 08:54 | P.PCN_ITS ---
Procedure Date: 05/14/23 Time: 08:30 Anesthesiologist:: Neeraj Shultz CRNA Complications:: None Pre-procedure Diagnosis:: Degenerative disc cervical spine multilevels. Cervical radiculopathy. Post-procedure Diagnosis:: Same. Indications for Procedure:: Patient is a very pleasant 48-year-old female comes our clinic today for repeat cervical epidural steroid injection. Patient had significant improvement terms of her overall posterior cervical neck pain as well as bilateral shoulder and arm radicular symptoms with a previous injection 6 months ago. She rates her pain today 6/10. Procedure Details:: Procedure:Cervical epidural steroid injection Informed consent was obtained and the risks and benefits of the procedure were explained to the patient. The patient was taken to the procedure room and noninvasive monitors placed, including noninvasive blood pressure cuff and pulse oximeter. The neck was prepped using Chloraprep as a cleansing solution. The C6- C7 interspace was viewed using fluroscopy. The skin and subcutaneous tissues were anesthetized using lidocaine 1.5% and a 25-gauge needle. After this an 18- gauge Touhy epidural needle was placed into the C6-C7 interspace under fluroscopy guidance and advanced using loss of resistance to air until the epidural space was encountered. After confirmation of needle placement in the epidural space using contrast dye, a solution containing normal saline, 2 mL and Depo-Medrol 80 mg was incrementally injected into the cervical epidural space.~ The patient tolerated the procedure well with no complications. The patient was observed in the Pain Clinic and then discharged home neurologically intact. Plan and Disposition:: Patient was discharged without incident.
== END 2023-05-14 08:43 | disposition home or self-care (01) ==
LOC: SC.PAINP 07:58
PROVIDERS: PCP Family Medicine; Visit Provider Nurse Anesthetist, Certified Registered
DX: M50.123 Cervical disc disorder at C6-C7 level with radiculopathy (principal)
CPT/HCPCS: 62321; J1040

== ENCOUNTER → 2023-06-05 08:49 | Outpatient (POV) | payer MEDICARE, SELFPAY ==
--- NOTE | 2023-06-05 09:05 | EXP.PAIN.SOA ---
[facility] Pain Management SOAP Note Subjective:: Patient is a pleasant 48-year-old female who presents today for follow-up of cervical epidural steroid injection C6-C7 on 05/14/2023. We are currently treating the patient for degenerative disc disease of cervical spine with cervical radiculopathy symptoms, sacroiliitis, greater trochanteric bursitis, restless leg syndrome. Today she rates her pain a 4 out of 10. Patient denies any new trauma or injury. She does state that she has had at least 60% improvement following this injection and feels like it still helping. Patient does state that she still has some pain and numbness into her hand however it is much more manageable and she feels overall more functional following this. Patient is currently managed with diclofenac 75 mg twice a day, ropinirole 0.5 mg at bedtime and cyclobenzaprine 5 mg at bedtime. Patient is requesting if we can do any sort of patches or any recommendations for creams. Her Raudel has been reviewed and is appropriate. Review of Systems: General: No recent weight changes, no fever, no sleep disturbances Respiratory: No cough, no shortness of air, no recurring pulmonary infections Cardiovascular/peripheral vascular: No chest pain, no palpitations, no edema, no shortness of breath Gastrointestinal: No new onset incontinence, normal bowel movements reported Genitourinary: No new onset incontinence Musculoskeletal: Neck pain Psychiatric: [Normal mood/affect] Neurological: [Denies weakness in extremities], [denies balance issues] Objective:: Physical Exam: General: Alert and oriented x3, no acute distress, pleasant and cooperative Lungs: Respirations even and unlabored, symmetrical chest expansion Eyes: PERRL Musculoskeletal: Flexion and extension of cervical [spine] somewhat guarded secondary to pain, [antalgic gait noted] Neurological: Speech clear, no gross sensory deficit Assessment:: Degenerative disc disease of cervical spine with cervical radiculopathy symptoms, sacroiliitis, greater trochanteric bursitis, restless leg syndrome Plan:: I will refill the patient's diclofenac 75 mg twice a day, ropinirole 0.5 mg at bedtime and cyclobenzaprine 5 mg at bedtime and provide a 1 month supply of this medication. I will also order the patient a compounded cream and send in a prescription of lidocaine 5% patches. I have counseled the patient to contact her pharmacy and get a soto before filling the lidocaine patches as in the past patients have stated the cost is too much. Patient will return to clinic in 1 month for reevaluation of symptoms and plan of care. Patient has been instructed to contact the clinic with any concerns before the next appointment. Dr. Whiteside has reviewed this note and agrees with this plan of care. This note was dictated using voice recognition software and make contain errors or omissions. [facility] Disclaimer: The information contained in this section may have been updated after the patient was seen, as this information can be updated by other users. Medical History Degenerative joint disease (DJD) of lumbar spine History of back pain Lumbar radiculopathy Post laminectomy syndrome Surgical History History of back surgery History of bilateral tubal ligation History of dilatation and curettage Family History Mother Family history of myocardial infarction Sister Family history of diabetes mellitus type II Social History Smoking Status: Never smoker alcohol intake: never substance use type: denies use current occupational status: other Travel in the last 8 weeks: None household members: significant other and children housing: house current occupation: [employer] caffeine: Yes
[2023-06-05 09:13] VITALS: BP 130/73; PULSE 82; RESP 18; O2SAT 99; BMI 27.3
== END | disposition home or self-care (01) ==
PROVIDERS: PCP Family Medicine; Visit Provider Nurse Practitioner Family
DX: M50.123 Cervical disc disorder at C6-C7 level with radiculopathy (principal); M46.1 Sacroiliitis, not elsewhere classified; M70.60 Trochanteric bursitis, unspecified hip; G25.81 Restless legs syndrome
CPT/HCPCS: 99212; G0463

== ENCOUNTER 2023-07-15 08:24 | Outpatient (POV) | payer MEDICARE, SELFPAY ==
[2023-07-15 08:32] VITALS: BP 133/68; PULSE 87; RESP 18; TEMP 36.8; O2SAT 98; BMI 30.2
--- NOTE | 2023-07-15 08:40 | A.OFFVIS_ITS ---
[facility] Pain Management SOAP Note Subjective:: Patient is a pleasant 48-year-old female who presents today for medication refill. Today she rates her pain a 4 out of 10. She denies any new trauma or injury. She does state that she will still occasionally have numbness and tingling going down her right arm however it is still not as severe as what it had been and it is not constant. Patient did previously have a cervical epidural back in April that did provide at least 60% improvement and feels like it still helping. Patient is currently managed with diclofenac 75 mg twice a day, Flexeril 5 mg at bedtime, ropinirole 0.5 mg at bedtime and compounded cream. Patient denies any side effects from these medications. At our last vi sit we did try and send in a prescription of lidocaine patches however the pharmacy did not have these in stock. Patient states she is unsure if anything is changed. Her Raudel has been reviewed and is appropriate. Review of Systems: General: No recent weight changes, no fever, no sleep disturbances Respiratory: No cough, no shortness of air, no recurring pulmonary infections Cardiovascular/peripheral vascular: No chest pain, no palpitations, no edema, no shortness of breath Gastrointestinal: No new onset incontinence, normal bowel movements reported Genitourinary: No new onset incontinence Musculoskeletal: Right arm numbness tingling Psychiatric: [Normal mood/affect] Neurological: [Denies weakness in extremities], [denies balance issues] Objective:: Physical Exam: General: Alert and oriented x3, no acute distress, pleasant and cooperative Lungs: Respirations even and unlabored, symmetrical chest expansion Eyes: PERRL Musculoskeletal: Flexion and extension of cervical [spine] somewhat guarded secondary to pain, [antalgic gait noted] Neurological: Speech clear, no gross sensory deficit Assessment:: Degenerative disc disease of cervical spine with cervical radiculopathy symptoms, sacroiliitis, greater trochanteric bursitis, restless leg syndrome Plan:: I will refill the patient's diclofenac 75 mg twice a day, Flexeril 5 mg at bedtime, ropinirole 0.5 mg at bedtime and provide a 3-month supply of these medications. I will also send in another prescription of the lidocaine 5% patches. Patient will return to clinic in 3 months for reevaluation of symptoms and plan of care. Patient has been instructed to contact the clinic with any concerns before the next appointment. Dr. Whiteside has reviewed this note and agrees with this plan of care. This note was dictated using voice recognition software and make contain errors or omissions. [facility] Disclaimer: The information contained in this section may have been updated after the patient was seen, as this information can be updated by other users. Medical History Degenerative joint disease (DJD) of lumbar spine History of back pain Lumbar radiculopathy Post laminectomy syndrome Surgical History History of back surgery History of bilateral tubal ligation History of dilatation and curettage Family History Mother Family history of myocardial infarction Sister Family history of diabetes mellitus type II Social History Smoking Status: Never smoker alcohol intake: never substance use type: denies use current occupational status: other Travel in the last 8 weeks: None household members: significant other and children housing: house current occupation: [employer] caffeine: Yes
== END 2023-07-15 23:59 | disposition home or self-care (01) ==
PROVIDERS: PCP Family Medicine; Visit Provider Nurse Practitioner Family
DX: M50.10 Cervical disc disorder with radiculopathy, unspecified cervical region (principal); M46.1 Sacroiliitis, not elsewhere classified; M70.60 Trochanteric bursitis, unspecified hip; G25.81 Restless legs syndrome
CPT/HCPCS: 99212; G0463

== ENCOUNTER 2024-04-30 19:17 | Emergency (ER) | payer MEDICARE, SELFPAY ==
[2024-04-30 19:35] VITALS: BP 148/72; PULSE 103; RESP 21; TEMP 36.8; O2SAT 98; BMI 31.1
--- NOTE | 2024-04-30 19:42 | ED_ITS ---
Discharge Plan Disposition Patient Disposition: Still a Patient Prescriptions Prescriptions: No Action Slow Release Iron 140 mg (45 mg iron) tablet extended release 140 mg PO DAILY magnesium 250 mg tablet 250 mg PO DAILY amitriptyline 10 mg tablet 20 mg PO HS 90 Days Qty: 180 3RF ropinirole 0.5 mg tablet 0.5 mg PO HS PRN (Reason: LEG PAIN) Qty: 30 2RF Rx Instructions: administer 1-3 hours before bedtime Referrals Follow up/Referrals: Skyler Nichols MD [Primary Care Provider] - See instructions Print Language Print Language: Dominican Discharge ED Provider: [place] [facility] HPI General Stated complaint: OGDEN,vomiting Mode of Arrival: Ambulatory Source of Information: Patient Limitations: No Limitations Time Seen by Provider: 04/30/24 19:42 Description of Symptoms (Recalled from Triage Doc. by RN): PATIENT C/O HEADACHE WITH VOMITING AND BLURRED VISION THAT STARTED YESTERDAY MORNING. PATIENT STATES THIS HEADACHE IS THE WORSE ONE SHE HAS EVER HAD AND PAIN IS RADIATED TO LEFT SIDE OF FACE HEENT Symptoms (Recalled from RN notes): Yes Resp Symptoms (Recalled from RN notes): No Skin Symptoms (Recalled from RN notes): No MS Symptoms (Recalled from RN notes): No Functional Status (Recalled from RN notes): WNL History of Present Illness Provider Complaint: Patient states that she has hx of migraine headaches that she sees Neurology for States that yesterday she started with headache and it is different from her other migraine headaches and states that it is the worse headache she has ever had States that pain is on the left side of her head and into her face, States that she has been having blurry vision and it is worse on the left and had some vomiting with it but thinks that is from the pain being so bad Related Data Previous Rx's ?Medication ?Instructions ?Recorded amitriptyline 10 mg tablet 20 mg (2 x 10 mg) PO HS headaches 02/14/24 90 days #180 tabs Allergies Allergy/AdvReac Type Severity Reaction Status Date / Time No Known Allergies Allergy Verified 12/11/23 10:36 Worker's Comp Is this a Worker's Comp case?: No [facility] Disclaimer: The information contained in this section may have been updated after the patient was seen, as this information can be updated by other users. Medical History History of back pain Post laminectomy syndrome Lumbar radiculopathy Degenerative joint disease (DJD) of lumbar spine Surgical History History of bilateral tubal ligation History of dilatation and curettage History of back surgery Family History Mother Family history of myocardial infarction Sister Family history of diabetes mellitus type II Social History Smoking Status: Never smoker alcohol intake: never substance use type: denies use current occupational status: other Travel in the last 8 weeks: None household members: significant other and children housing: house current occupation: [employer] caffeine: Yes Have you lived/traveled outside [place] in past 30 days?: No Contact w/someone who lives/traveled outside [place] past 30 days?: No Exposure to someone with infectious disease in past 14 days?: No Do you have a fever (greater than 100.4 F or 38 C)?: No Have you tested positive for COVID-19: No Exposed to someone with COVID-19 in past 14 days?: No Do you have a sore throat?: No Do you have a cough?: No Do you have any weakness?: No Do you have any diarrhea?: No Are you experiencing any unusual bleeding?: No Do you have any muscle aches/pain?: No Do you have any abdominal pain?: No Are you experiencing loss of taste or smell?: No ROS Obtained: Yes All systems reviewed & no additional complaints except as documented and Yes Systems reviewed as appropriate & no additional complaints except as documented Constitutional Constitutional: Reports headache(s) (reports worse headache of her life and different from her normal headaches) Eyes Eyes: Reports system reviewed and no additional complaints, except as documented, Reports as per HPI and Reports blurry vision ENT Ears, Nose, Mouth, and Throat: Reports system reviewed and no additional complaints, except as documented, Reports as per HPI and Reports headache(s) (reports worse headache of her life and different from her normal headaches) Comments: reports left side of face hurting and sore Cardiovascular Cardiovascular: Reports system reviewed and no additional complaints, except as documented and Reports as per HPI Respiratory Respiratory: Reports system reviewed and no additional complaints, except as documented and Reports as per HPI Gastrointestinal Gastrointestingal: Reports system reviewed and no additional complaints, except as documented, as per HPI, nausea and vomiting Neurologic Neurologic: Reports headache(s) (reports worse headache of her life and different from her normal headaches) Physical Exam General General appearance: alert Comment: patient sitting in dark room with eyes squinted Respiratory Respiratory exam: Present normal lung sounds bilaterally; Absent respiratory distress or wheezes Cardiovascular Cardiovascular exam: Present regular rate, normal rhythm and tachycardia Neurological Exam Neurological exam: Present alert and oriented X3 Medical Decision Making Medical Records Screening: Per USPSTF and CDC recommendations, given the prevalence of disease in our region, it is our hospital?s policy to screen for HIV and viral Hepatitis for all patients aged 18 and over and those with ongoing risk factors. Raudel Inquiry Pt receiving controlled substance: No Raudel was queried for this patient: No Vital Signs: 04/30/24 19:35 Temperature 98.3 F Temperature Source Oral Pulse Rate [Left Brachial] 103 H Respiratory Rate 21 Blood Pressure [Left Arm] 148/72 H Blood Pressure Mean [Left Arm] 97 Blood Pressure Source [Left Arm] Automatic Cuff Blood Pressure Position [Left Arm] Sitting 02 Sat by Pulse Oximetry 98 Oxygen Delivery Method Room Air Medical Decision Narrative: Patient reports worse headache of her life and that it is different from her normal migraine headaches moreso on the left side of her head and face with blurry vision that has improved a little Due to complaint of worse headache of her life and different from her normal headaches she has had in the past recommended transfer to the ED for further work up and evaluation and she agreed Called ED and patient was moved to room 6
--- NOTE | 2024-04-30 19:48 | PC.NURSE ---
PATIENT SENT TO ER PER Chica ANTUNEZ APRN FOR FURTHER EVALUATION. REPORT GIVEN TO [facility] BY Chica ANTUNEZ APRN. PATIENT TRANSPORTED TO ER VIA WHEELCHAIR WITH [facility] STAFF ASSIST AT THIS TIME
[2024-04-30 19:55] VITALS: BP 178/98; PULSE 91; RESP 16; TEMP 36.6; O2SAT 97; BMI 30.4
--- NOTE | 2024-04-30 19:56 | HMH.EDGENADL ---
Discharge Plan Disposition Patient Disposition: Still a Patient Prescriptions Prescriptions: No Action amitriptyline 10 mg tablet 20 mg PO HS 90 Days Qty: 180 3RF Referrals Follow up/Referrals: Skyler Nichols MD [Primary Care Provider] - See instructions Activity Restrictions/Add. Instructions Additional Instructions/Restrictions: Return with any significant worsening of your headaches fevers neck stiffness or other concerns. Clinical Impressions Clinical Impression: Migraine Print Language Print Language: Citizen Of [place] Discharge ED Provider: Jessy Clarke General Adult HPI General Chief complaint: Headache Stated complaint: OGDEN,vomiting Time Seen by Provider: 04/30/24 19:42 Mode of Arrival: Ambulatory Source of Information: Patient Limitations: No Limitations Description of Symptoms (Recalled from ER Triage Doc. by RN): PATIENT C/O HEADACHE WITH VOMITING AND BLURRED VISION THAT STARTED YESTERDAY MORNING. PATIENT STATES THIS HEADACHE IS THE WORSE ONE SHE HAS EVER HAD AND PAIN IS RADIATED TO LEFT SIDE OF FACE History of Present Illness HPI narrative: Patient is a 49-year-old female presenting today with a headache he was sent from the [facility]. States that she has a history of migraines that she has been dealing with regularly for the last 3 years she has followed by neurologist and is currently on amitriptyline for those headaches. When she has a breakthrough headache she takes Tylenol and ibuprofen which were not successful today. Time of onset to document maximal intensity was almost 48 hours no thunderclap component or neurologic complaints associate with this no fevers. No meningismus. She does state that the pain is low but at a proportion to what it has been in the past. She has had neuroimaging in the past without any significant abnormalities. She denies any neurologic complaints at the moment either. Related Data Previous Rx's ?Medication ?Instructions ?Recorded amitriptyline 10 mg tablet 20 mg (2 x 10 mg) PO HS headaches 02/14/24 90 days #180 tabs Allergies Allergy/AdvReac Type Severity Reaction Status Date / Time No Known Allergies Allergy Verified 12/11/23 10:36 [facility] Disclaimer: The information contained in this section may have been updated after the patient was seen, as this information can be updated by other users. Medical History History of back pain Post laminectomy syndrome Lumbar radiculopathy Degenerative joint disease (DJD) of lumbar spine Surgical History History of bilateral tubal ligation History of dilatation and curettage History of back surgery Family History Mother Family history of myocardial infarction Sister Family history of diabetes mellitus type II Social History Smoking Status: Never smoker alcohol intake: never substance use type: denies use current occupational status: other Travel in the last 8 weeks: None household members: significant other and children housing: house current occupation: [employer] caffeine: Yes Have you lived/traveled outside [place] in past 30 days?: No Contact w/someone who lives/traveled outside [place] past 30 days?: No Exposure to someone with infectious disease in past 14 days?: No Do you have a fever (greater than 100.4 F or 38 C)?: No Have you tested positive for COVID-19: No Exposed to someone with COVID-19 in past 14 days?: No Do you have a sore throat?: No Do you have a cough?: No Do you have any weakness?: No Do you have any diarrhea?: No Are you experiencing any unusual bleeding?: No Do you have any muscle aches/pain?: No Do you have any abdominal pain?: No Are you experiencing loss of taste or smell?: No Other Medical History Have you received the Flu Vaccine for this season: Yes Have you received the Pneumonia Vaccine: No ROS Obtained: Yes All systems reviewed & no additional complaints except as documented Physical Exam General General appearance: alert Neck Neck exam: Absent meningismus Respiratory Respiratory exam: Present normal lung sounds bilaterally Cardiovascular Cardiovascular exam: Present regular rate Neurological Exam Neurological exam: Present alert, oriented X3, CN II-XII intact and normal gait; Absent motor sensory deficit Medical Decision Making Medical Records Screening: Per USPSTF and CDC recommendations, given the prevalence of disease in our region, it is our hospital?s policy to screen for HIV and viral Hepatitis for all patients aged 18 and over and those with ongoing risk factors. Raudel Inquiry Pt receiving controlled substance: No Vital Signs: 04/30/24 19:35 04/30/24 19:55 Temperature 98.3 F 97.9 F Temperature Source Oral Oral Pulse Rate [Left Brachial] 103 H 91 H Respiratory Rate 21 16 Blood Pressure [Left Arm] 148/72 H 178/98 H Blood Pressure Mean [Left Arm] 97 124 Blood Pressure Source [Left Arm] Automatic Cuff Automatic Cuff Blood Pressure Position [Left Arm] Sitting Supine 02 Sat by Pulse Oximetry 98 97 Oxygen Delivery Method Room Air Room Air Orders (Tests/Meds): ED MEDICATIONS Discontinued Medications Generic Name Dose Route Start Last Admin Trade Name Michele PRN Reason Stop Dose Admin Dexamethasone Sodium Phosphate 10 mg 04/30/24 19:54 04/30/24 20:04 Dexamethasone 4mg/Ml 1ml Vial IV 04/30/24 19:55 10 mg ONCE ONE Administration Diphenhydramine HCl 25 mg 04/30/24 19:54 04/30/24 20:03 Diphenhydramine 50mg/Ml Vial IV 04/30/24 19:55 25 mg ONCE ONE Administration Lactated Ringer's 1,000 mls @ 999 mls/hr 04/30/24 20:00 04/30/24 20:03 Lactated Ringer's 1000 Ml Bag IV 04/30/24 21:00 999 mls/hr .Q1H1M GRISELDA Administration Ketorolac Tromethamine 15 mg 04/30/24 19:54 04/30/24 20:03 Ketorolac 30mg/Ml Vial IV 04/30/24 19:55 15 mg ONCE ONE Administration Prochlorperazine Edisylate 10 mg 04/30/24 19:54 04/30/24 20:03 Prochlorperazine 10mg/2ml Vial IV 04/30/24 19:55 10 mg ONCE ONE Administration Medical Decision Narrative: 49-year-old with above history and physical normal neurologic exam no meningismus or evidence of an infection nor focal neurologic deficit. Given the fact that there is no thunderclap no occasion for CT imaging or LP at the moment. Will give migraine cocktail and reassess. Reassessment 928 patient feeling much better serial neurologic exams are normal and improved. Pain is tolerable and she is ready to go home she will follow-up outpatient with her neurologist and return with worsening symptoms Critical Care Critical Care Time Critical Care Time: No
[2024-04-30] MEDS: LACTATED RINGERS 1000ML 1,000 ML 999 ML IV (20:03)
[2024-04-30] MEDS: diphenhydrAMINE 50MG/ML VIAL 25 MG IV (20:03)
[2024-04-30] MEDS: PROCHLORPERAZINE 10MG/2ML VIAL 10 MG IV (20:03)
[2024-04-30] MEDS: KETOROLAC 30MG/ML VIAL 15 MG IV (20:03)
[2024-04-30] MEDS: DEXAMETHASONE 4MG/ML 1ML VIAL 10 MG IV (20:04)
[2024-04-30 21:28] VITALS: BP 151/76; PULSE 91; RESP 16; TEMP 36.6; O2SAT 99
== END 2024-04-30 21:37 | disposition still patient (30) ==
LOC: UTC 19:48 → ER 19:48
PROVIDERS: Emergency Provider Student in an Organized Health Care Education/Training Program; PCP Family Medicine
DX: G43.909 Migraine, unspecified, not intractable, without status migrainosus (principal); R11.10 Vomiting, unspecified; H53.8 Other visual disturbances
CPT/HCPCS: 96361; 96374; 96375; 99283; J0780; J1100; J1200; J1885; J7120

== ENCOUNTER 2024-09-25 11:12 | Outpatient (CLI) | payer MEDICARE, SELFPAY ==
--- NOTE | 2024-09-25 11:21 | XR_ITS ---
FINAL REPORT CLINICAL HISTORY: pain/swelling FINDINGS: AP, oblique and lateral views of the left foot were obtained. There is no prior exam for comparison. There is no acute fracture or dislocation. The joint spaces are preserved. Soft tissues are unremarkable. IMPRESSION: No acute osseous abnormality of the left foot. Reviewed, Interpreted and Dictated by Rachele Mcqueen MD Transcribed by Jesica Pearson Authenticated and [facility]
--- NOTE | 2024-09-25 11:21 | XR_ITS ---
FINAL REPORT CLINICAL HISTORY: lat ankle pain FINDINGS: AP, oblique, and lateral views of the left ankle were obtained. There is no prior exam for comparison. There is no fracture or dislocation. The ankle mortise is intact. Lateral soft tissue edema is noted. IMPRESSION: Soft tissue edema without acute osseous abnormality of the left ankle. Reviewed, Interpreted and Dictated by Rachele Mcqueen MD Transcribed by Jesica Pearson Authenticated and [facility]
== END 2024-09-25 23:59 | disposition home or self-care (01) ==
LOC: RAD 11:13
PROVIDERS: PCP Nurse Practitioner; Visit Provider Nurse Practitioner
DX: M25.572 Pain in left ankle and joints of left foot (principal); M79.89 Other specified soft tissue disorders
CPT/HCPCS: 73610; 73630

== ENCOUNTER 2024-11-03 16:17 | Outpatient (CLI) | payer MEDICARE, SELFPAY ==
--- OUTSIDE RECORDS SUMMARY | 2024-11-03 16:19 | XMS_ITS ---
Author Organization Unknown Problems Date Problem Result OnSetDate Icd10 SnomedCode Severity Cu stom 05/05/2024 00:00:00 Migraine G43.909
--- NOTE | 2024-11-03 16:30 | MM_ITS ---
PROCEDURE INFORMATION: Exam: MG Bilateral Screening 3D Mammography Exam date and time: 11/03/2024 4:21 PM Age: 49 years old Clinical indication: Screening mammogram. TECHNIQUE: Imaging protocol: Bilateral Screening tomosynthesis and 2D mammography including computer-aided detection (CAD) when performed. COMPARISON: 1. MG MAMMO DIAGNOSTIC DIGITAL TOMOSYNTHESIS BILATERAL W CAD 09/19/2022 8:31 AM 2. MG MM DIG SCREENING MAMM BI W/CAD 03/08/2022 2:18 PM 3. MG MM DIG MAMM DX UNILAT LT CAD 08/18/2021 2:09 PM 4. MG MM DIG MAMM DX UNILAT LT CAD 12/19/2020 1:57 PM FINDINGS: MAMMOGRAPHY: Breast composition: There are scattered areas of fibroglandular density. Mass: Stable benign-appearing nodules are present in the bilateral breasts. No new or morphologically suspicious nodule has developed to suggest malignancy. Architectural distortion: No new or suspicious architectural distortion. Calcifications: No new or suspicious calcifications are present Asymmetric density: No new or suspicious asymmetric density is present Skin thickening: None. Axillary adenopathy: None. IMPRESSION: No mammographic evidence of malignancy. Recommend annual screening mammography unless otherwise clinically indicated. ASSESSMENT: BI-RADS category 2: Benign.
== END 2024-11-03 23:59 | disposition home or self-care (01) ==
LOC: RAD 16:17
PROVIDERS: PCP Family Medicine; Visit Provider Obstetrics & Gynecology
DX: Z12.31 Encounter for screening mammogram for malignant neoplasm of breast (principal); N63.20 Unspecified lump in the left breast, unspecified quadrant; N63.10 Unspecified lump in the right breast, unspecified quadrant; R92.323 Mammographic fibroglandular density, bilateral breasts
CPT/HCPCS: 77063; 77067